=== PATIENT | male | born 1940 | race Asian ===

== ENCOUNTER → 2024-09-19 | Outpatient (CLI) | payer MEDICARE, BC, MEDICAID, SELFPAY ==
[2024-09-19 08:38] LABS: Basophils # (Auto) 0.1 Thou/mm3 (0.0-0.2); Basophils % (Auto) 1 % (0-2.5); Eosinophils # (Auto) 0.3 Thou/mm3 (0.0-0.5); Eosinophils % (Auto) 4 % (0-10); Hematocrit 41.8 % (41.0-53.0); Hemoglobin 13.8 g/dL (13.5-16.0); Immature Granulocytes % (Auto) 0 % (0-0); Immature Granulocytes Auto 0.02 Thou/mm3 (0.00-0.00); Lymphocytes # (Auto) 2.4 Thou/mm3 (1.0-4.8); Lymphocytes % (Auto) 27 % (10-50); Mean Corpuscular Hemoglobin 30.6 pg (25.0-35.0); Mean Corpuscular Volume 93 fL (80-100); Monocytes # (Auto) 0.8 Thou/mm3 (0.0-0.8); Monocytes % (Auto) 9 % (0-12); Neutrophils # (Auto) 5.2 Thou/mm3 (1.8-7.7); Neutrophils % (Auto) 60 % (37-80); Nucleated Red Blood Cell % 0 /100 WBC (0); Platelet Count 314 Thou/mm3 (140-440); RDW Standard Deviation 45.7 fL (35.1-43.9); Red Blood Count 4.51 Miln/mm3 (4.50-5.90); White Blood Count 8.8 Thou/mm3 (3.8-10.6)
[2024-09-19 08:53] LABS: Vitamin D 25 Hydroxy Total 25.4 ng/mL (7.3-40.2)
[2024-09-19 08:55] LABS: Alanine Aminotransferase 20 U/L (10-49); Albumin, Serum 4.5 gm/dL (3.4-4.8); Albumin/Globulin Ratio 1.5 (1.2-2.2); Alkaline Phosphatase 68 U/L (46-116); Anion Gap 10 (7-16); Aspartate Amino Transferase 25 U/L (0-34); BUN/Creatinine Ratio 13 Ratio (12-20); Bilirubin,Total 0.5 mg/dL (0.3-1.2); Blood Urea Nitrogen 17 mg/dL (9-23); Carbon Dioxide 26.9 mMol/L (20.0-31.0); Cardiac Risk Estimate 2.8 RATIO (4.0-6.7); Chloride 106 mMol/L (98-107); Cholesterol 95 mg/dL (132-200); Creatinine (Component) 1.3 mg/dL (0.6-1.3); Free T4 (Free Thyroxine) 1.24 ng/dL (0.89-1.76); Globulin 3.1 gm/dL (2.3-3.5); Glucose 92 mg/dL (74-106); HDL Cholesterol 34 mg/dL (40-60); LDL Cholesterol,Calculated 39 mg/dL (0-130); Osmolality,Calculated 286 (275-295); Potassium 5.4 mMol/L (3.4-5.1); Sodium 143 mMol/L (136-145); Thyroid Stimulating Hormone 2.17 uIU/mL (0.55-4.78); Total Protein 7.6 gm/dL (5.7-8.2); Triglycerides 111 mg/dL (30-150); eGFR 55 See Note
[2024-09-19 10:04] LABS: Glucose Estimated Average 151 mg/dL (80-131); Hemoglobin A1C 6.9 % Hgb (4.8-6.0)
== END | disposition home or self-care (01) ==
PROVIDERS: PCP Internal Medicine; Referring Provider Internal Medicine; Visit Provider Internal Medicine
DX: I11.0 Hypertensive heart disease with heart failure (principal); E11.9 Type 2 diabetes mellitus without complications; E78.2 Mixed hyperlipidemia; E55.9 Vitamin D deficiency, unspecified; E03.9 Hypothyroidism, unspecified
CPT/HCPCS: 36415; 80053; 80061; 82306; 83036; 84439; 84443; 85025

== ENCOUNTER 2025-07-04 14:43 | Inpatient (IN) | payer MEDICARE, MEDICAID, SELFPAY ==
[2025-07-04] VITALS (8 sets, daily range): BP systolic 140–180; BP diastolic 71–108; PULSE 72–113; RESP 16–99; TEMP 36.1–36.8; O2SAT 94–99; BMI 27.4
--- NOTE | 2025-07-04 | XR_ITS ---
Examinations: MRI Brain without intravenous contrast. MRA brain without intravenous contrast. MRA carotids without intravenous contrast 3-D vascular reconstructions Date and time of exam: July 04, 2025, 1835 hours INDICATIONS: Choking after dinner with loss of consciousness, right eye droop, stroke alert today Technique: Multiple axial and sagittal images of the brain have been obtained MRA brain carotid images without contrast obtained, including 3-D postprocessing, vascular maximum intensity projection images Findings: All of the images are severely degraded by patient motion Ventricles are not significantly enlarged No mass effect upon the ventricular system No gross foci of restricted diffusion Very prominent microvascular white matter change with significant atrophy IMPRESSION: Although the images are severely degraded by patient motion No gross hemorrhage mass effect or midline shift No gross acute infarct Chronic multi-infarct dementia pattern
--- NOTE | 2025-07-04 14:44 | EKG_ITS ---
[facility] Test Date: 2025-07-04 Pat Name: JUSTIN SAMPSON Department: Room: - Gender: Male [employer]: : [id number] Requested By: Kelly Toney Order Number: [id number] Reading MD: Kelly Toney Measurements Intervals [place] Rate: 92 P: 63 TX: 210 QRS: -20 QRSD: 80 T: 60 QT: 374 QTc: 465 Interpretive Statements SINUS RHYTHM WITH FIRST DEGREE AV BLOCK No previous ECG available for comparison /[id number]/[email or web address]/[id number].pdf
--- NOTE | 2025-07-04 14:44 | XR_ITS ---
Examination: CTA carotids with intravenous contrast CTA brain, head with intravenous contrast. 2-D sagittal, coronal reconstructions. 3-D reconstructions. Exam date and time: July 04, 2025, 1516 hours INDICATIONS: Stroke alert, onset acute aphasia focal neurologic deficit today CTDI: vol (mGy) 26.1 DLP: (mGycm) 455 Technique: Multiple CTA axial brain, head carotid images post intravenous contrast injection 75 cc, [id number]. 2-D sagittal, coronal reconstructions. 3-D reconstructions, 3-D post processing including vascular maximum intensity projection images. Low dose protocols were performed. One or more of the following dose reduction techniques were used; automated exposure control, adjustment of the mA and/or KV according to patient size, use of iterative reconstruction technique. Findings: No significant common carotid carotid bifurcation or internal carotid artery stenoses on the right Heavy calcification left common carotid bifurcation, 40% stenosis left carotid bifurcation, no critical left internal carotid artery stenosis Dominant right vertebral artery with no critical vertebral artery stenoses in the neck Intracranial vertebral arteries basilar artery posterior cerebral branches fill with no large vessel occlusions Petrous juxtasellar portions internal carotid arteries fill Moderate calcification juxtasellar internal carotid arteries M1 segments middle cerebral arteries middle cerebral artery trifurcation vessels anterior cerebral vessels fill with no large vessel occlusions IMPRESSION: No significant neck arterial stenoses No cerebral large vessel arterial occlusions or thrombus
--- NOTE | 2025-07-04 14:44 | XR_ITS ---
Examination: CT brain head without contrast. 2-D sagittal coronal reconstructions Date and time of exam: July 04, 2025, 1453 hours INDICATIONS: Stroke alert, onset focal neurologic deficit today Technique: Multiple CT axial sections of the brain have been obtained, 5 mm slice thickness. Contrast has not been administered. 2-D sagittal, coronal reconstructions have been obtained Low dose protocols were performed. One or more of the following dose reduction techniques were used; automated exposure control, adjustment of the mA and/or KV according to patient size, use of iterative reconstruction technique. 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 Suspicious for small area of hemorrhage, subarachnoid right frontal parietal sulci image 13 No mass effect or midline shift Basal cisterns are not remarkable. Fourth ventricle is midline. Cranial vault intact. Impression: Suspicious for small areas of hemorrhage, subarachnoid, right frontal parietal sulci Recommend repeat study without patient motion
--- NOTE | 2025-07-04 14:44 | XR_ITS ---
EXAMINATION: AP chest single view TECHNIQUE: AP portable semiupright chest single view Date and time: June, 1539 hours, comparison May 14, 2023 INDICATIONS: Stroke alert today. FINDINGS: Normal size heart No aspiration pneumonia Ectatic thoracic aorta. Severe osteopenia IMPRESSION: No aspiration pneumonia
--- NOTE | 2025-07-04 14:50 | PC.NURSE ---
PT BROUGHT IN BY EMS WITH C/O POSSIBLE STROKE. PER EMS FAMILY STATED THAT PT C/O CHEST PAIN AND SOB THEN WHEN THEY SAT HIM DOWN HE SUDDENLY BECAME NON VERBAL. EMS STATED THAT WHEN HE GOT THERE HE WAS UNABLE TO ANSWER QUESTIONS AND SEEMED TO NOT BE ABLE TO CONTROL R EYE LID. ONCE PT ARRIVED TO ER PT WAS ABLE TO STATE HIS NAME AND DATE OF . DO TO LANGUAGE BARRIER UNABLE TO ASK FURTHER QUESTIONS OR PERFORM NIH. PT WAS NOTED TO MOVE ALL EXTREMITIES EQUALLY AND WITHOUT DIFFICULTY. NO FACIAL DROOP NOTED. EYES PERRL. PT WAS ABLE TO TRACK MY FINGER WITH HIS EYES. PT IN CT AT THIS TIME
--- NOTE | 2025-07-04 14:55 | PC.NURSE ---
UNABLE TO COMPLETE NIH DUE TO LANGUAGE BARRIER. WILL COMPLETE ONCE BACK TO ROOM AND STORM CHASER IS AVAILABLE
--- NOTE | 2025-07-04 15:00 | XR_ITS ---
Examination: CT brain head without contrast. 2-D sagittal coronal reconstructions Date and time of exam: July 04, 2025, 1506 hours INDICATIONS: Stroke alert, onset focal neurologic deficits today, acute aphasia CTDI: vol (mGy): 51.7 DLP: (mGycm): 1020 Technique: Multiple CT axial sections of the brain have been obtained, 5 mm slice thickness. Contrast has not been administered. 2-D sagittal, coronal reconstructions have been obtained Low dose protocols were performed. One or more of the following dose reduction techniques were used; automated exposure control, adjustment of the mA and/or KV according to patient size, use of iterative reconstruction technique. Findings: Mild ventricular enlargement. Encephalomalacia left temporal lobe Intra-axial or extra-axial hemorrhage density is not seen. No mass effect or midline shift Basal cisterns are not remarkable. Fourth ventricle is midline. Cranial vault intact. Impression: Negative for acute hemorrhage, mass effect or midline shift
[2025-07-04] MEDS: LORazepam 2 MG/ML VIAL 1 MG IVP (15:10)
[2025-07-04 15:12] LABS: Basophils # (Auto) 0.1 Thou/mm3 (0.0-0.2); Basophils % (Auto) 1 % (0-2.5); Eosinophils # (Auto) 0.3 Thou/mm3 (0.0-0.5); Eosinophils % (Auto) 3 % (0-10); Hematocrit 41.0 % (41.0-53.0); Hemoglobin 13.2 g/dL (13.5-16.0); Immature Granulocytes Auto 0.02 Thou/mm3 (0.00-0.00); Lymphocytes # (Auto) 3.7 Thou/mm3 (1.0-4.8); Lymphocytes % (Auto) 37 % (10-50); Mean Corpuscular HGB Conc 32.2 g/dl (31.0-37.0); Mean Corpuscular Hemoglobin 30.4 pg (25.0-35.0); Mean Corpuscular Volume 95 fL (80-100); Monocytes # (Auto) 0.7 Thou/mm3 (0.0-0.8); Monocytes % (Auto) 7 % (0-12); Neutrophils # (Auto) 5.2 Thou/mm3 (1.8-7.7); Neutrophils % (Auto) 52 % (37-80); Nucleated Red Blood Cell # 0.00 Thou/mm3 (0.00-0.00); Nucleated Red Blood Cell % 0 /100 WBC (0); Platelet Count 308 Thou/mm3 (140-440); RDW Standard Deviation 46.0 fL (35.1-43.9); Red Blood Count 4.34 Miln/mm3 (4.50-5.90); White Blood Count 10.1 Thou/mm3 (3.8-10.6)
[2025-07-04 15:39] LABS: INR 1.0 (0.9-1.3); Partial Thromboplastin Time 27.4 Seconds (22.0-36.0); Prothrombin Time 10.5 Seconds (9.0-12.2)
--- NOTE | 2025-07-04 15:39 | PC.NURSE ---
SON AT BEDSIDE. TELENUERO BACK ON SCREEN TO SPEAK WITH PT AND SON
[2025-07-04 15:41] LABS: Alanine Aminotransferase 15 U/L (10-49); Albumin, Serum 4.5 gm/dL (3.4-4.8); Albumin/Globulin Ratio 1.3 (1.2-2.2); Alcohol, Blood Medical < 3.0 mg/dL (0-10.0); Alkaline Phosphatase 73 U/L (46-116); Anion Gap 11 (7-16); Aspartate Amino Transferase 19 U/L (0-34); BUN/Creatinine Ratio 10 Ratio (12-20); Bilirubin,Total 0.3 mg/dL (0.3-1.2); Blood Urea Nitrogen 14 mg/dL (9-23); Calcium 9.5 mg/dL (8.3-10.6); Calcium (Corrected) 9.5 mg/dL (8.5-10.1); Carbon Dioxide 24.4 mMol/L (20.0-31.0); Chloride 104 mMol/L (98-107); Creatinine (Component) 1.4 mg/dL (0.6-1.3); Globulin 3.5 gm/dL (2.3-3.5); Glucose 113 mg/dL (74-106); Magnesium 1.6 mg/dL (1.6-2.6); Osmolality,Calculated 279 (275-295); Potassium 4.1 mMol/L (3.4-5.1); Sodium 139 mMol/L (136-145); Total Protein 8.0 gm/dL (5.7-8.2); Troponin I < 0.020 ng/mL (0.0-0.045); eGFR 50 See Note
--- NOTE | 2025-07-04 15:55 | ESCONSULT_ITS ---
Tele Neuro Consultation Consultation Date 07/04/25 Most Recent Vital Signs Last Vital Signs Temp 98.3 F 07/04/25 15:26 Pulse 88 07/04/25 15:40 Resp 18 07/04/25 15:26 BP 150/83 H 07/04/25 15:26 Pulse Ox 99 07/04/25 15:26 O2 Del Method Room Air 07/04/25 15:26 Laboratory-Coagulation Panel PT 10.5 Seconds (9.0-12.2) 07/04/25 14:57 INR 1.0 (0.9-1.3) 07/04/25 14:57 APTT 27.4 Seconds (22.0-36.0) 07/04/25 14:57 Consultation Narrative [facility] Patient Name:???Deangelo Treviño Date of :???1940 Identification Number:??? Date of Service:???07/04/2025 14:45:39 Diagnosis:?R29.818 - Transient neurological symptoms Impression: ?84 y/o M, history of HLD, imaging evidence of prior stroke or other type of insult to left temporal region, prior GI bleeds, now presenting to hospital with abrupt onset of impaired mentation (with not verbalizing or responding), and concern also for impaired control of right eyelid, onset of symptoms witnessed by family at 1:15 PM. By the time of my assessment, he is now responding, answering basic questions (confirmed by his son at bedside), following commands, and no obvious focal deficits. Overall NIHSS 2, for mild lethargy and didn't know month. NCHCT did not show acute abnormalities. Given significant improvement without any obvious severe deficits, and with prior history of GI bleeds (although unknown if any in the past 21 days), thrombolytic was not advised. CTA head/neck without LVO. on my review. ? ?At this point, stroke is on differential, although other considerations could include focal seizure (arising from left temporal region), or other metabolic/infectious/cardiac etiology. Recommend admission for monitoring and further evaluation. Our recommendations are outlined below. Recommendations: ? Stroke/Telemetry Floor ? Neuro Checks (Q4) ? Bedside Swallow Eval ? DVT Prophylaxis ? IV Fluids, Normal Saline ? Euglycemia and Avoid Hyperthermia (PRN Acetaminophen) ?-MRI brain w/o contrast ?-routine EEG ?-cardiac/metabolic/infectious work-up Sign Out: ? Discussed with Emergency Department Provider Advanced Imaging:CTA Head and Neck Completed. LVO:No Patient is not a candidate for PAUL Metrics: Last Known Well: 07/04/2025 13:15:00 Arrival Time: 07/04/2025 14:43:00 Activation Time: 07/04/2025 14:45:39 Initial Response Time: 07/04/2025 14:54:19Symptoms: not responding, ?aphasia. Initial patient interaction: 07/04/2025 14:59:00 NIHSS Assessment Completed: 07/04/2025 15:04:00Patient is not a candidate for Thrombolytic. Thrombolytic Medical Decision: 07/04/2025 15:06:00Patient was not deemed candidate for Thrombolytic because of following reasons: Stroke severity too mild (non-disabling) . CT Head: I personally reviewed all the CT images that were available to me and it showed: no acute intracranial abnormalities Primary Provider Notified of Diagnostic Impression and Management Plan on: 07/04/2025 15:53:40 History of Present Illness:Patient is a 84 year old Male. Patient was brought by EMS for symptoms of not responding, ?aphasia. History is as per ER staff (who received EMS report), also later confirmed by his son at the bedside. Patient unable to provide specific history. Patient was in his USOH up until 1315, at which time he started to complain of chest pain, he sat down, then suddenly became non-verbal, also was apparently having difficulty opening up his right eyelid. EMS was activated, taken to ER for further evaluation. When he initially came to ER, apparently was minimally responsive, only saying his name; was not tracking or following commands. By the time of my assessment, he is much improved, able to answer basic questions, follows commands, tracking to both sides symmetrically. There is a language barrier, he mainly speaks Cam[place]. His son spoke with him, and feels that he is speaking like his usual self at this point. Patient continues to complain of some chest pain. ? Past Medical History: ?Diabetes Mellitus ?Hyperlipidemia ?Stroke Other PMH:? gastritis/duodenitis; prior GI bleeds; Medications: Anticoagulant use:??Unknown Antiplatelet use:?Unknown Reviewed EMR for current medications Allergies:? Reviewed Social History: Drug Use: No Family History: There is no family history of premature cerebrovascular disease pertinent to this consultation ROS : 14 Points Review of Systems was performed and was negative except mentioned in HPI. Past Surgical History: There Is No Surgical History Contributory To Today?s Visit ? Examination: BP(150/91),?Pulse(88), 1A: Level of Consciousness - Arouses to minor stimulation?+ 1 1B: Ask Month and Age - 1 Question Right?+ 1 1C: Blink Eyes & Squeeze Hands - Performs Both Tasks?+ 0 2: Test Horizontal Extraocular Movements - Normal?+ 0 3: Test Visual Diaz - No Visual Loss?+ 0 4: Test Facial Palsy (Use Grimace if Obtunded) - Normal symmetry?+ 0 5A: Test Left Arm Motor Drift - No Drift for 10 Seconds?+ 0 5B: Test Right Arm Motor Drift - No Drift for 10 Seconds?+ 0 6A: Test Left Leg Motor Drift - No Drift for 5 Seconds?+ 0 6B: Test Right Leg Motor Drift - No Drift for 5 Seconds?+ 0 7: Test Limb Ataxia (FNF/Heel-Villa) - No Ataxia?+ 0 8: Test Sensation - Normal; No sensory loss?+ 0 9: Test Language/Aphasia - Normal; No aphasia?+ 0 10: Test Dysarthria - Normal?+ 0 11: Test Extinction/Inattention - No abnormality?+ 0 NIHSS Score:?2 NIHSS Free Text :?mild lethargy, likely from Ativan ? ?couldn't identify month Pre-Morbid Modified [place] Scale: Unable to assess Spoke with :?Dr. Francisco This consult was conducted in real time using interactive audio and video technology. Patient was informed of the technology being used for this visit and agreed to proceed. Patient located in hospital and provider located at home/office setting. Patient is being evaluated for possible acute neurologic impairment and high probability of imminent or life-threatening deterioration. I spent total of 62 minutes providing care to this patient, including time for face to face visit via telemedicine, review of medical records, imaging studies and discussion of findings with providers, the patient and/or family. Dr Odilon Newsome [facility] For Inpatient follow-up with [facility] physician please call [facility] at . As we are not an outpatient service for any post hospital discharge needs please contact the hospital for assistance. If you have any questions for the [facility] physicians or need to reconsult for clinical or diagnostic changes please contact us via [facility] at . Non-radiologist review of imaging performed to assist with emergent clinical decision-making. Remote physician workstations do not possess the same resolution, calibration, or diagnostic capabilities as hospital-based radiology reading stations, and formal radiologist read is necessary. Signature :Fidelina Newsome ?
--- NOTE | 2025-07-04 16:10 | PD.EDNEURO ---
Neuro Symptoms Deficit-RME/HPI General Chief Complaint: Neuro Symptoms/Deficit Stated Complaint: POSSIBLE STROKE Time Seen by Provider: 07/04/25 14:44 Arrival date/time: 07/04/25 14:43 RME / HPI RME / HPI Narrative: 84 year old male presents to the ED BIBA from home following a nonverbal episode today. Per medics, family on scene reported the patient had just eaten and sitting on the couch when he had complained of chest pain and shortly thereafter became non-verbal. unable to respond to families questions. Medics reported the patient was havign difficulty opening his right eye lid, not tracking or following commands. No further history obtainable by patient. Related Data Home Medications ?Medication ?Instructions ?Recorded ?Confirmed acetaminophen 325 mg tablet 650 mg PO Q6H 07/04/25 07/04/25 (Tylenol) atorvastatin 20 mg tablet (Lipitor) 20 mg PO QDAY 07/04/25 07/04/25 losartan 25 mg tablet 25 mg PO QDAY 07/04/25 07/04/25 metformin 500 mg tablet 500 mg PO BID 07/04/25 07/04/25 Allergies Allergy/AdvReac Type Severity Reaction Status Date / Time No Known Allergies Allergy Unverified 05/16/23 16:02 Review of Systems Review of Systems ROS Unobtainable: unobtainable due to mental status Past Medical History Past Medical History NEUROLOGIC: Positive Dementia CARDIAC: Positive Hypercholesterolemia GASTROINTESTINAL: Positive Gastrointestinal Bleed (Colonoscopy) ENDOCRINE: Positive Diabetes Mellitus Type 2 OTHER HISTORY: Positive Blood Transfusions Social History SMOKING STATUS: Never smoker ED Exam Narrative Physical exam: GENERAL APPEARANCE: Patient does not follow commands, had a blank stare, tried to initiate a respond when asked a question HEENT: Normocephalic, atraumatic; pupils equal, round, reactive to light; EOMI; mucous membranes pink, moist; oropharynx clear NECK: Supple LUNGS: CTABL; no wheezes, no rales, no rhonchi HEART: Regular rate, regular rhythm; normal S1, S2; no murmurs ABDOMEN: non distended; normal BS; soft, no tenderness, no guarding, no rebound; no masses, no organomegaly, no hernia EXTREMITIES: atraumatic; no edema NEUROLOGIC: Patient does not follow commands, had a blank stare, tried to initiate a respond when asked a question, not following commands SKIN: warm, dry, normal color; no rashes Course Quality Measures Suspected type of Stroke: Non Acute Last known well (date): 07/04/25 Last known well (time): 13:15 Tenecteplase given: Reason(s) TPA not given: Stroke severity too mild (non-disabling) not given stroke Orders Category Date Time Status Admit to Inpatient Status Routine Admission 07/04/25 16:29 Active Patient Condition Routine Admission 07/04/25 16:29 Ordered Aspiration precautions NOW Care 07/04/25 16:29 Active Bedside Blood Glucose NOW Care 07/04/25 14:44 Active Auth Specialist NOW Care 07/04/25 14:44 Active Continuous Pulse Oximetry NOW Care 07/04/25 14:44 Completed EKG (ED ONLY) *Do not use* NOW Care 07/04/25 14:44 Completed Head of Bed Elevation NOW Care 07/04/25 16:29 Active In and Out Catheter NEEDED Care 07/04/25 14:44 Active Insert IV NOW Care 07/04/25 14:44 Active Miscellaneous Nursing Order NOW Care 07/04/25 16:29 Active Miscellaneous Nursing Order NOW Care 07/04/25 16:29 Active NIH Stroke Scale NOW Care 07/04/25 16:29 Active NIH Stroke Scale now Care 07/04/25 14:44 Active NPO NOW Care 07/04/25 14:44 Active NPO NOW Care 07/04/25 16:29 Active Neuro Check Q4H Care 07/04/25 16:29 Active Notify provider NEEDED Care 07/04/25 16:29 Active Nurse Swallow Screen X1 Care 07/04/25 16:29 Active Nurse Swallow Screen x1 Care 07/04/25 14:44 Active Obtain weight X1 Care 07/04/25 16:29 Active Vital Signs, Non-Routine Q4H Care 07/04/25 16:30 Ordered Vital Signs, Non-Routine Q4H Care 07/04/25 20:30 Ordered Consult to Neurology / Tele-Neurology Routine Cons 07/04/25 14:44 Active Consult to Neurology / Tele-Neurology Routine Cons 07/04/25 16:29 Active PT [Referral Physical Therapy] Routine Cons 07/04/25 16:29 Active Referral Speech Therapy Routine Cons 07/04/25 16:29 Active Diet NPO (NOW) Diet 07/04/25 16:29 Active CA echo doppler complete Stat Exams 07/04/25 16:[address] angio stroke protocol Stat Exams 07/04/25 14:[address] head/brain wo con Stat Exams 07/04/25 15:[address] stroke protocol Stat Exams 07/04/25 14:44 Completed EKG (ED Only) Stat Exams 07/04/25 14:44 Draft MR stroke protocol brain wwo with MRA head and neck Exams 07/04/25 16:29 Ordered Stat XR chest 1V portable Stat Exams 07/04/25 14:44 Completed Alcohol, Blood Medical Stat Lab 07/04/25 14:57 Completed B-Type Natriuretic Peptide Stat Lab 07/04/25 14:57 Completed CBC AM DRAW Lab 07/05/25 05:00 Ordered CBC AM DRAW Lab 07/06/25 05:00 Ordered CBC AM DRAW Lab 07/07/25 05:00 Ordered CBC AM DRAW Lab 07/08/25 05:00 Ordered CBC AM DRAW Lab 07/09/25 05:00 Ordered CBC Stat Lab 07/04/25 14:57 Completed Comprehensive Metabolic Panel AM DRAW Lab 07/05/25 05:00 Ordered Comprehensive Metabolic Panel AM DRAW Lab 07/06/25 05:00 Ordered Comprehensive Metabolic Panel AM DRAW Lab 07/07/25 05:00 Ordered Comprehensive Metabolic Panel AM DRAW Lab 07/08/25 05:00 Ordered Comprehensive Metabolic Panel AM DRAW Lab 07/09/25 05:00 Ordered Comprehensive Metabolic Panel Stat Lab 07/04/25 14:57 Completed Drug Screen,Urine Stat Lab 07/04/25 16:40 Completed Glycohemoglobin w (eAG) AM DRAW Lab 07/05/25 05:00 Ordered Lipid Panel AM DRAW Lab 07/05/25 05:00 Ordered Magnesium AM DRAW Lab 07/05/25 05:00 Ordered Magnesium AM DRAW Lab 07/06/25 05:00 Ordered Magnesium AM DRAW Lab 07/07/25 05:00 Ordered Magnesium AM DRAW Lab 07/08/25 05:00 Ordered Magnesium AM DRAW Lab 07/09/25 05:00 Ordered Magnesium Stat Lab 07/04/25 14:57 Completed Partial Thromboplastin Time Stat Lab 07/04/25 14:57 Completed Phosphorous AM DRAW Lab 07/05/25 05:00 Ordered Phosphorous AM DRAW Lab 07/06/25 05:00 Ordered Phosphorous AM DRAW Lab 07/07/25 05:00 Ordered Phosphorous AM DRAW Lab 07/08/25 05:00 Ordered Phosphorous AM DRAW Lab 07/09/25 05:00 Ordered Prothrombin Time with INR AM DRAW Lab 07/05/25 05:00 Ordered Prothrombin Time with INR Stat Lab 07/04/25 14:57 Completed Thyroid Stimulating Hormone AM DRAW Lab 07/05/25 05:00 Ordered Troponin I Routine Lab 07/04/25 16:43 Completed Troponin I Stat Lab 07/04/25 14:57 Completed Urinalysis, C/S if Indicated Stat Lab 07/04/25 16:39 Completed Acetaminophen Tab [Tylenol Tab] Med 07/04/25 16:29 Active 650 mg PO Q6H PRN Heparin Inj Med 07/04/25 21:00 Active 5,000 unit SC Q12HR LORazepam [Ativan Inj] Med 07/04/25 14:53 Discontinued 1 mg IVP X1 ONE Ondansetron Inj [Zofran Inj] Med 07/04/25 16:29 Active 4 mg IVP Q6H PRN Pantoprazole [Protonix] Med 07/05/25 09:00 Active 40 mg PO QDAY Senna [Senokot] Med 07/05/25 09:00 Active 1 tab PO QDAY oxyCODONE/APAP 5/325 [Percocet 5/325] Med 07/04/25 16:29 Active 1 tab PO Q6H PRN Code Status Routine Oth 07/04/25 16:29 Ordered Oxygen Delivery DAILY RT 07/04/25 16:29 Active Oxygen Delivery NOW RT 07/04/25 14:44 Active Vital Signs Vital signs: Vital Signs Temperature 98.3 F 07/04/25 15:26 Pulse Rate 91 07/04/25 15:26 Respiratory Rate 18 07/04/25 15:26 Blood Pressure 150/83 H 07/04/25 15:26 Pulse Oximetry (%) 99 07/04/25 15:26 Oxygen Delivery Method Room Air 07/04/25 15:26 Pulse ox is 99% on room air which is adequate. Neuro Symptoms / Deficit MDM Narrative MDM Narrative:: IMelanie, am scribing for and in the presence of Dr. Francisco. 1553: I spoke with teleneurologist Dr. Newsome. States patient is not a TNK candidate. 1604: I spoke with hospitalist team A for admission. Discussed patients PMHx, HPI, ED course, exam findings, labs, and radiology results. The hospitalist agree to accept the patient for admission. Patient data External records reviewed:: [facility] previous records and EMS form Clinical information provided by:: EMS Social determinants that could affect healthcare access:: none Patient has the following chronic illnesses:: HLD, prior GI bleeds How is presenting disease/condition affected by chronic disease/condition?: uneffected by Evaluation data The following diagnostics were reviewed and interpreted by me:: lab results, radiology exam(s) and EKG tracing(s) (EKG @ 15:34, normal sinus rhythm with first degree AV block, rate 92, Q-wave in lead III. ) Lab and/or radiology exams considered but not ordered:: None Interpretation Summary: Ordering Physician: Kelly Francisco MD Date of Service: 07/04/25 Procedure(s): XR chest 1V portable Accession Number(s): [id number] cc: Brett Carias MD; NO PRIMARY/FAMILY,PHYSICIAN; Kelly Francisco MD~ EXAMINATION: AP chest single view TECHNIQUE: AP portable semiupright chest single view Date and time: June, 1539 hours, comparison May 14, 2023 INDICATIONS: Stroke alert today. FINDINGS: Normal size heart No aspiration pneumonia Ectatic thoracic aorta. Severe osteopenia IMPRESSION: No aspiration pneumonia Dictated By: Brett Carias MD Signed By: <Electronically signed by Brett Carias MD in OV> 07/04/25 1554 Ordering Physician: Kelly Francisco MD Date of Service: 07/04/25 Procedure(s): CT stroke protocol Accession Number(s): [id number] cc: Brett Carias MD; Kelly Francisco MD~ Examination: CT brain head without contrast. 2-D sagittal coronal reconstructions Date and time of exam: July 04, 2025, 1453 hours INDICATIONS: Stroke alert, onset focal neurologic deficit today Technique: Multiple CT axial sections of the brain have been obtained, 5 mm slice thickness. Contrast has not been administered. 2-D sagittal, coronal reconstructions have been obtained Low dose protocols were performed. One or more of the following dose reduction techniques were used; automated exposure control, adjustment of the mA and/or KV according to patient size, use of iterative reconstruction technique. 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 Suspicious for small area of hemorrhage, subarachnoid right frontal parietal sulci image 13 No mass effect or midline shift Basal cisterns are not remarkable. Fourth ventricle is midline. Cranial vault intact. Impression: Suspicious for small areas of hemorrhage, subarachnoid, right frontal parietal sulci Recommend repeat study without patient motion Dictated By: Brett Carias MD Signed By: <Electronically signed by Brett Carias MD in OV> 07/04/25 1455 Ordering Physician: Kelly Francisco MD Date of Service: 07/04/25 Procedure(s): CT angio stroke protocol Accession Number(s): [id number] cc: Brett Carias MD; Kelly Francisco MD~ Examination: CTA carotids with intravenous contrast CTA brain, head with intravenous contrast. 2-D sagittal, coronal reconstructions. 3-D reconstructions. Exam date and time: July 04, 2025, 1516 hours INDICATIONS: Stroke alert, onset acute aphasia focal neurologic deficit today CTDI: vol (mGy) 26.1 DLP: (mGycm) 455 Technique: Multiple CTA axial brain, head carotid images post intravenous contrast injection 75 cc, [id number]. 2-D sagittal, coronal reconstructions. 3-D reconstructions, 3-D post processing including vascular maximum intensity projection images. Low dose protocols were performed. One or more of the following dose reduction techniques were used; automated exposure control, adjustment of the mA and/or KV according to patient size, use of iterative reconstruction technique. Findings: No significant common carotid carotid bifurcation or internal carotid artery stenoses on the right Heavy calcification left common carotid bifurcation, 40% stenosis left carotid bifurcation, no critical left internal carotid artery stenosis Dominant right vertebral artery with no critical vertebral artery stenoses in the neck Intracranial vertebral arteries basilar artery posterior cerebral branches fill with no large vessel occlusions Petrous juxtasellar portions internal carotid arteries fill Moderate calcification juxtasellar internal carotid arteries M1 segments middle cerebral arteries middle cerebral artery trifurcation vessels anterior cerebral vessels fill with no large vessel occlusions IMPRESSION: No significant neck arterial stenoses No cerebral large vessel arterial occlusions or thrombus Dictated By: Brett Carias MD Signed By: <Electronically signed by Brett Carias MD in OV> 07/04/25 1550 Ordering Physician: Kelly Francisco MD Date of Service: 07/04/25 Procedure(s): CT head/brain wo con Accession Number(s): [id number] cc: Brett Carias MD; Kelly Francisco MD~ Examination: CT brain head without contrast. 2-D sagittal coronal reconstructions Date and time of exam: July 04, 2025, 1506 hours INDICATIONS: Stroke alert, onset focal neurologic deficits today, acute aphasia CTDI: vol (mGy): 51.7 DLP: (mGycm): 1020 Technique: Multiple CT axial sections of the brain have been obtained, 5 mm slice thickness. Contrast has not been administered. 2-D sagittal, coronal reconstructions have been obtained Low dose protocols were performed. One or more of the following dose reduction techniques were used; automated exposure control, adjustment of the mA and/or KV according to patient size, use of iterative reconstruction technique. Findings: Mild ventricular enlargement. Encephalomalacia left temporal lobe Intra-axial or extra-axial hemorrhage density is not seen. No mass effect or midline shift Basal cisterns are not remarkable. Fourth ventricle is midline. Cranial vault intact. Impression: Negative for acute hemorrhage, mass effect or midline shift Dictated By: Brett Carias MD Signed By: <Electronically signed by Brett Carias MD in OV> 07/04/25 1522 Medications / Prescriptions Medications or Prescriptions considered but not ordered:: None Medication administrations:: Medication Administration History Acetaminophen (Acetaminophen 325 Mg Tablet) 650 mg PO Q6H PRN PRN Reason: Fever >100.4 or pain 1-5 Stop: 08/03/25 16:28 Dextrose (Dextrose 50%-Water Inj 50 Ml Syringe) 25 ml IV Q15MIN PRN PRN Reason: BG 50-70 responsive npo pt Stop: 08/03/25 16:50 Dextrose (Dextrose 50%-Water Inj 50 Ml Syringe) 50 ml IV Q15MIN PRN PRN Reason: BG <50 OR BG <70 & pt unresponsive Stop: 08/03/25 16:50 Glucagon (Glucagon Inj 1 Mg Vial) 1 mg IM Q15MIN PRN PRN Reason: BG <70, and no IV access Heparin Sodium (Porcine) (Heparin Sod Inj 5000 Unit/Ml Vial) 5,000 unit SC Q12HR [place] Stop: 07/18/25 20:59 Ceftriaxone Sodium/Dextrose (Rocephin/D5w 1gm Iv Premix) 1 gm in 50 mls @ 100 mls/hr IV QPM [place] Stop: 07/11/25 16:59 Insulin Human Lispro (Insulin Lispro (Admelog) 1 Unit/0.01 Ml Unit) 0 unit SC Q6HR [place]; Protocol Stop: 08/03/25 17:59 Ondansetron HCl (Ondansetron Inj 2 Mg/Ml Inj 2 Ml) 4 mg IVP Q6H PRN; Protocol PRN Reason: NAUSEA OR VOMITING Stop: 08/03/25 16:28 Oxycodone/Acetaminophen (Oxycodone/Apap 5/325 Tablet) 1 tab PO Q6H PRN PRN Reason: Pain Scale 6-10 Stop: 07/09/25 16:28 Pantoprazole Sodium (Pantoprazole 40 Mg Tablet) 40 mg PO QDAY [place] Stop: 08/04/25 08:59 Sennosides (Senna Tablet) 1 tab PO QDAY [place]; Protocol Stop: 08/04/25 08:59 Discontinued Medications Lorazepam (Lorazepam 2 Mg/Ml Vial) 1 mg IVP X1 ONE Stop: 07/04/25 14:54 Last Admin: 07/04/25 15:10 Dose: 1 mg Documented By: [facility] Comments: GIVEN FOR STROKE PT IN CT AND NO SCANNER AVAILABLE See above Consultations Consultation(s) initiated? (list below): Yes Consultation #1 (Physician, Specialty, Details): See above Diagnosis Neuro Differential Diagnosis: subarachnoid hemorrhage, cerebrovascular accident and transient cerebral ischemia Most likely diagnosis given after review of the tests above:: Acute aphasia Admission Indicated Admission indicated?: indicated Admission Request Was there a request for admission?: Yes Admission Attestation Admission request attestation: Discussed case with [] from Hospitalist service regarding admission. Discussed patients ED course, exam findings, labs, and radiology results. The Hospitalist [agrees,declines] to accept the patient for admission. Disposition Plan Disposition Plan: Admit Discharge Plan Plan Patient Disposition: Admit Acute Care w/in Hospital Problem List Clinical Impression: Aphasia
[2025-07-04 16:28] LABS: B-Type Natriuretic Peptide 53 pg/mL (0-100)
--- NOTE | 2025-07-04 16:29 | ECHO_ITS ---
Patient Info Name: Deangelo Treviño Age: 84 years : 1940 Gender: Male Ht: 160 cm Wt: 76 kg BSA: 1.87 m2 BP: 140 / 85 mmHg HR: 86 bpm Exam Date: 07/04/2025 5:33 PM Admit Date: 07/04/2025 Site: [facility] Room Number: ER Patient Status: I Exam Type: CA echo doppler complete Morning Show Producer: Audrey Almeida Ordering Physician: Maikel Georges Study Info Indications Stroke - Primary Location: [place] Left Ventricular Outflow Tract Name Value Normal LVOT 2D LVOT Diameter 2.0 cm LVOT Doppler LVOT Peak Velocity 93 cm/s LVOT Mean Gradient 2 mmHg LVOT VTI 21 cm LVOT VTI/AV VTI Ratio 0.9 LVOT Stroke Volume 65 ml Pulmonic Valve Name Value Normal PV Doppler PV Peak Velocity 72 cm/s PV Regurgitation Doppler UT Peak End Diastolic Velocity 87 cm/s Mitral Valve Name Value Normal MV Doppler MV Decel [place] 670 cm/s2 MV PHT 15 ms MV Area (PHT) 14.3 cm2 4.0-5.0 MV Diastolic Function MV E Peak Velocity 35 cm/s MV A Peak Velocity 96 cm/s MV E/A 0.4 MV Annular TDI MV Septal e' Velocity 5.2 cm/s MV E/e' (Septal) 6.8 MV Lateral e' Velocity 4.9 cm/s MV E/e' (Lateral) 7.2 MV e' Average 5.06 cm/s MV E/e' (Average) 7.0 Tricuspid Valve Name Value Normal TV Regurgitation Doppler TR Peak Velocity 201 cm/s Estimated PAP/RSVP RA Pressure 8 mmHg <=5 PA Systolic Pressure 24 mmHg <36 RV Systolic Pressure 24 mmHg <36 TV Annular TDI TV Lateral Edwige s' Velocity 18.3 cm/s >=9.5 Aortic Valve Name Value Normal AV 2D/MM AV Cusp Sep (MM) 1.4 cm AV Doppler AV Peak Velocity 107 cm/s AV Mean Gradient 3 mmHg AV VTI 23 cm AV Area (Cont Eq VTI) 2.9 cm2 >=3.0 AV Area (Cont Eq Clifford) 2.7 cm2 AV DI (Clifford) 0.87 AV Regurgitation 2D LVOT Area 3.1 cm2 AV Regurgitation Doppler AR Decel [place] 383 cm/s2 AR PHT 343 ms Ventricles Name Value Normal LV Dimensions 2D/MM IVS Diastolic Thickness (2D) 1.3 cm 0.6-1.0 LVID Diastole (2D) 4.5 cm 4.2-5.8 LVIW Diastolic Thickness (2D) 0.9 cm 0.6-1.0 LVID Systole (2D) 3.2 cm 2.5-4.0 LVOT Diameter 2.0 cm LV Mass (2D Cubed) 175.02 g 88.00-224.00 LV Mass Index (2D Cubed) 94 g/m2 49-115 Relative Wall Thickness (2D) 0.40 <=0.42 IVS/LVIW Diastolic Thickness (2D) 1.44 0.00-1.50 LV Fractional Shortening/Ejection Fraction 2D/MM LV Fractional Shortening (2D) 29 % 25-43 LV EF (2D Teichholz) 56 % RV Dimensions 2D/MM TV Lateral Edwige s' Velocity 18.3 cm/s >=9.5 Atria Name Value Normal LA Dimensions LA Volume (4C A-L) 28 ml LA Volume (BP A-L) 29 ml Left Ventricle Left ventricular chamber dimension is normal. Left ventricular systolic function is normal with visually estimated ejection fraction of 55-60%. There is mild concentric hypertrophy noted in the left ventricle. Left ventricular segmental wall motion is normal. There is grade I diastolic dysfunction in the left ventricle. Right Ventricle Right ventricular chamber dimension is normal. Right ventricular systolic function is normal. Left Atrium Left atrial chamber dimension is normal. Right Atrium Right atrial chamber dimension is normal. Aortic Valve The aortic valve is trileaflet. There is mild aortic valve sclerosis. There is no aortic valve stenosis with a peak velocity of 107 cm/s, mean gradient of 3 mmHg, and aortic valve area of 2.9 cm2. There is moderate aortic valve regurgitation. Pulmonic Valve The pulmonic valve is normal. There is no pulmonic valve stenosis. There is trace pulmonic regurgitation. Mitral Valve The mitral valve has normal leaflets. There is no mitral valve stenosis. There is no mitral valve regurgitation. Tricuspid Valve The tricuspid valve leaflets are normal. There is no tricuspid valve stenosis. There is trace tricuspid valve regurgitation. No pulmonary hypertension, estimated pulmonary arterial systolic pressure is 24 mmHg and systemic blood pressure of 140 mmHg in systole. Pericardium/Pleural The pericardium appears normal. There is no pericardial effusion. No pleural effusion visualized. Inferior Vena Cava Not well visualized inferior vena cava with >50% collapse upon inspiration consistent with normal right atrial pressure, 8 mmHg. Aorta The aortic measurements are indexed to age and body surface area. The aortic root at the sinus of Valsalva is not well visualized. The prox ascending aorta is not well visualized. Summary 1. Left ventricle size is normal and systolic function is normal. Estimated ejection fraction is 55-60%. There is grade I diastolic dysfunction. There is mild concentric hypertrophy noted. 2. Right ventricle chamber size is normal and systolic function is normal. Estimated RVSP is 24 mmHg. 3. There is mild aortic valve sclerosis without stenosis. Mild to moderate AI. Trace PI and MR. Mild MAC. 4. The left atrium is normal. The right atrium is normal. IVC not well-visualized. 5. Bubble study not performed as patient uncooperative and moving during the exam. Report Signatures Finalized by Wagner Ortiz on 07/04/2025 07:16 PM
[2025-07-04 16:52] LABS: Collection Type, Urine Clean Catch; Squamous Epithelial Cell,Urine 0 /hpf (0-5)
[2025-07-04 16:56] LABS: Bilirubin,Urine Negative (Negative); Blood,Urine Negative (Negative); Clarity,Urine Clear (Clear/Hazy); Color,Urine Lt-Yellow (Lt Yel-Yel); Culture Indicated,Urine Not Indicated; Glucose, Urine Negative (Negative); Ketones,Urine Negative (Negative); Leukocyte Esterase,Urine Negative (Negative); Nitrite,Urine Negative (Negative); PH,Urine 6.0 (5.0-7.0); Protein,Urine 2+ (Neg - Trace); RBC,Urine 3 /hpf (0-3); Specific Gravity,Urine 1.038 (1.001-1.035); Urobilinogen,Urine Negative mg/dL (0.0-1.0); WBC,Urine 2 /hpf (0-5)
[2025-07-04 17:04] LABS: Amphetamine/Methamp Scrn,U Negative (Negative); Barbiturate Screen,Urine Negative (Negative); Benzodiazepines Screen,Urine Negative (Negative); Benzoylecgonine Screen, Ur Negative (Negative); Fentanyl Screen,Urine Negative (Negative); Opiate Screen,Urine Negative (Negative); THC Screen,Urine Negative (Negative)
[2025-07-04 17:13] LABS: Troponin I < 0.020 ng/mL (0.0-0.045)
--- NOTE | 2025-07-04 17:18 | PD.RESPRO ---
Documentation for date of: 07/04/25 Exam Vital Signs Temp Pulse Resp BP Pulse Ox O2 Del Method 97.9 F 113 H 18 140/85 H 99 Room Air 07/04/25 16:28 07/04/25 16:28 07/04/25 16:28 07/04/25 16:28 07/04/25 16:28 07/04/25 16:28 Objective Labs 07/04/25 14:57 07/04/25 14:57 Labs: Laboratory Results - last 24 hr 07/04/25 07/04/25 07/04/25 14:57 16:39 16:40 WBC 10.1 RBC 4.34 L Hgb 13.2 L Hct 41.0 MCV 95 MCH 30.4 MCHC 32.2 RDW Std Deviation 46.0 H Plt Count 308 Neut % (Auto) 52 Lymph % (Auto) 37 Whitley % (Auto) 7 Eos % (Auto) 3 Baso % (Auto) 1 Neut # (Auto) 5.2 Lymph # (Auto) 3.7 Whitley # (Auto) 0.7 Eos # (Auto) 0.3 Baso # (Auto) 0.1 Immature Gran # (Auto) 0.02 H Absolute Nucleated RBC 0.00 Immature Gran % 0 Nucleated RBC % 0 PT 10.5 INR 1.0 APTT 27.4 Sodium 139 Potassium 4.1 Chloride 104 Carbon Dioxide 24.4 Anion Gap 11 BUN 14 Creatinine 1.4 H Estim Creat Clear Calc Not Performed. eGFR 50 L BUN/Creatinine Ratio 10 L Glucose 113 H Calculated Osmolality 279 Calcium 9.5 Corrected Calcium 9.5 Magnesium 1.6 Total Bilirubin 0.3 AST 19 ALT 15 Alkaline Phosphatase 73 Troponin I < 0.020 B-Natriuretic Peptide 53 Total Protein 8.0 Albumin 4.5 Globulin 3.5 Albumin/Globulin Ratio 1.3 Ur Collection Type Clean Catch Urine Color Lt-Yellow Urine Clarity Clear Urine pH 6.0 Ur Specific [place] 1.038 H Urine Protein 2+ A Urine Glucose (UA) Negative Urine Ketones Negative Urine Blood Negative Urine Nitrite Negative Urine Bilirubin Negative Urine Urobilinogen (Auto) Negative Ur Leukocyte Esterase Negative Urine RBC 3 Urine WBC 2 Ur Squamous Epith Cells 0 Urine Bacteria None Ur Culture Indicated? Not Indicated Urine Opiates Screen Negative Urine Fentanyl Screen Negative Ur Barbiturates Screen Negative U Amphetamin/Meth Scrn Negative U Benzodiazepines Scrn Negative U Cocaine Metab Screen Negative U Marijuana (THC) Screen Negative Ethyl Alcohol < 3.0 07/04/25 16:43 WBC RBC Hgb Hct MCV MCH MCHC RDW Std Deviation Plt Count Neut % (Auto) Lymph % (Auto) Whitley % (Auto) Eos % (Auto) Baso % (Auto) Neut # (Auto) Lymph # (Auto) Whitley # (Auto) Eos # (Auto) Baso # (Auto) Immature Gran # (Auto) Absolute Nucleated RBC Immature Gran % Nucleated RBC % PT INR APTT Sodium Potassium Chloride Carbon Dioxide Anion Gap BUN Creatinine Estim Creat Clear Calc eGFR BUN/Creatinine Ratio Glucose Calculated Osmolality Calcium Corrected Calcium Magnesium Total Bilirubin AST ALT Alkaline Phosphatase Troponin I < 0.020 B-Natriuretic Peptide Total Protein Albumin Globulin Albumin/Globulin Ratio Ur Collection Type Urine Color Urine Clarity Urine pH Ur Specific [place] Urine Protein Urine Glucose (UA) Urine Ketones Urine Blood Urine Nitrite Urine Bilirubin Urine Urobilinogen (Auto) Ur Leukocyte Esterase Urine RBC Urine WBC Ur Squamous Epith Cells Urine Bacteria Ur Culture Indicated? Urine Opiates Screen Urine Fentanyl Screen Ur Barbiturates Screen U Amphetamin/Meth Scrn U Benzodiazepines Scrn U Cocaine Metab Screen U Marijuana (THC) Screen Ethyl Alcohol Quality Measures Quality Measures VTE prophylaxis Advance care planning discussed with:: other Assessment & Plan Assessment Current Active Medications: Generic Name Dose Route Start Last Admin Trade Name Freq PRN Reason Stop Dose Admin Acetaminophen 650 mg 07/04/25 16:29 Acetaminophen 325 Mg Tablet PO 08/03/25 16:28 Q6H PRN Fever >100.4 or pain 1-5 Dextrose 25 ml 07/04/25 16:51 Dextrose 50%-Water Inj 50 Ml Syringe IV 08/03/25 16:50 Q15MIN PRN BG 50-70 responsive npo pt Dextrose 50 ml 07/04/25 16:51 Dextrose 50%-Water Inj 50 Ml Syringe IV 08/03/25 16:50 Q15MIN PRN BG <50 OR BG <70 & pt unresponsive Glucagon 1 mg 07/04/25 16:51 Glucagon Inj 1 Mg Vial IM Q15MIN PRN BG <70, and no IV access Heparin Sodium (Porcine) 5,000 unit 07/04/25 21:00 Heparin Sod Inj 5000 Unit/Ml Vial SC 07/18/25 20:59 Q12HR [place] Ceftriaxone Sodium/Dextrose 1 gm in 50 mls @ 100 mls/hr 07/04/25 17:00 Rocephin/D5w 1gm Iv Premix IV 07/11/25 16:59 QPM [place] Insulin Human Lispro 0 unit 07/04/25 18:00 Insulin Lispro (Admelog) 1 Unit/0.01 Ml Unit SC 08/03/25 17:59 Q6HR [facility] Protocol Ondansetron HCl 4 mg 07/04/25 16:29 Ondansetron Inj 2 Mg/Ml Inj 2 Ml IVP 08/03/25 16:28 Q6H PRN NAUSEA OR VOMITING Protocol Oxycodone/Acetaminophen 1 tab 07/04/25 16:29 Oxycodone/Apap 5/325 Tablet PO 07/09/25 16:28 Q6H PRN Pain Scale 6-10 Pantoprazole Sodium 40 mg 07/05/25 09:00 Pantoprazole 40 Mg Tablet PO 08/04/25 08:59 QDAY [facility] Sennosides 1 tab 07/05/25 09:00 Senna Tablet PO 08/04/25 08:59 QDAY [facility] Protocol
--- NOTE | 2025-07-04 17:49 | ESHP_ITS ---
<Statement entered by Quan Valentin MD - 07/13/25 09:13> I reviewed above note and agree with findings and plans. I have also personally examined the patient with medicine team and went over assessment and plan with medical team including analysis internship and resident physician. <Statement entered by Georges Alfred MD - 07/04/25 17:50> In summary: 82-year-old male with PMHx of T2DM presenting after an episode of choking during dinner, and brief loss of consciousness and dysphagia as noted by his . There there was also right eye droop noted on exam in the ED which have since resolved. We attempted to reach out to the son who is a personal contract but were unsuccessful. Teleneuro recommended admission for stroke and seizure workup. He has a history of GI bleed, and symptoms appear to have resolved since admission, thus TPN is contraindicated and was not offered. 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 CT is also negative. Will admit for MRI and complete stroke workup and seizure workup. Pending further recommendation from in-house neurology. I?ve reviewed the note and agree with this assessment and plan, with the exceptions outlined above. I personally went over the labs, imaging, home medications, and prior records, and examined the patient. The case was also reviewed with the attending physician. Please note: this document was transcribed using voice recognition technology; minor inaccuracies may be present. 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 Patient was in his usual state of health until 1:15 PM, at which point patient became non- verbal and had difficulty with opening his right eyelid. Family called EMS and the patient was brought to the ED for further evaluation. Per ED note, patient was minimally responsive, only able to say his name, and not tracking or following commands on arrival. By the time the IM team came to assess the patient, he was able to follow commands and able to used the bedside urinal. Tried to get in touch with patient's son to obtain more information as patient is a poor historian however he did not answer. Teleneuro was consulted and patient's NIHSS was 2. Given his significant improvement, lack of obvious severe deficits, and a history of GI bleeds, teleneuro did not recommend thrombolytics. ED Course: -Initial vitals were: BP 150/83, HR 91, RR 18, 98.3F, O2 sat 99% on room air. -Labs significant for: hemoglobin 13.2, Cr 1.4, eGFR 50, glucose 113. -Imaging included: CXR: no apsiration pneumonia. Head CT: negative for acute hemorrhage, mass effect or midline shift, mild ventricular enlargement, encephalomalacia left temporal lobe. CTA head/neck: no significant neck arterial stenoses, no cerebral large vessel arterial occlusions or thrombus. -In the ED, patient was given: Lorazepam 1mg x1. Past Medical History: as above Social History: - Smoking: smoker - Alcohol: none - Illicit drugs: none Current Medications: pending med recs. Allergies: No known drug allergies. Review of Systems Review of Systems Narrative Review of Systems: ROS unobtainable. Patient is a poor historian. Exam Vital Signs Temp Pulse Resp BP Pulse Ox O2 Del Method 97.9 F 113 H 18 140/85 H 99 Room Air 07/04/25 16:28 07/04/25 16:28 07/04/25 16:28 07/04/25 16:28 07/04/25 16:28 07/04/25 16:28 Narrative Exam Physical Exam General: Awake and in no acute distress. Non-toxic appearing. HEENT: Normocephalic, atraumatic, extraocular movements intact, pupils equal and reactive to light. Heart: Regular rate and rhythm, no murmurs, rubs or gallops. Lungs: Clear to auscultation with no wheezing or crackles bilaterally. Non- labored respirations, symmetric chest rise, no use of accessory muscles. Abdomen: Soft, nondistended, nontender. No guarding or rebound tenderness. Neurologic: No obvious gross neurological deficit, and patient able to move all 4 extremities. Extremities: No edema, clubbing or cyanosis. Skin: Warm and dry without rashes. Psychiatric: Cooperative, appropriate mood and affect Results: Labs 07/05/25 05:32 07/05/25 05:32 Labs: Short CBC 07/04/25 Range/Units 14:57 WBC 10.1 (3.8-10.6) Thou/mm3 Hgb 13.2 L (13.5-16.0) g/dL Hct 41.0 (41.0-53.0) % Plt Count 308 (140-440) Thou/mm3 BMP 07/04/25 14:57 Sodium 139 Potassium 4.1 Chloride 104 Carbon Dioxide 24.4 BUN 14 Creatinine 1.4 H Glucose 113 H Calcium 9.5 Cardiac Enzymes 07/04/25 07/04/25 Range/Units 14:57 16:43 Troponin I < 0.020 < 0.020 (0.0-0.045) ng/mL Liver Function 07/04/25 Range/Units 14:57 Total Bilirubin 0.3 (0.3-1.2) mg/dL AST 19 (0-34) U/L ALT 15 (10-49) U/L Alkaline Phosphatase 73 (46-116) U/L Albumin 4.5 (3.4-4.8) gm/dL Urine 07/04/25 Range/Units 16:39 Urine Color Lt-Yellow (Lt Yel-Yel) Urine Clarity Clear (Clear/Hazy) Urine pH 6.0 (5.0-7.0) Ur Specific [place] 1.038 H (1.001-1.035) Urine Protein 2+ A (Neg - Trace) Urine Glucose (UA) Negative (Negative) Quality Measures Quality Measures VTE prophylaxis Advance care planning discussed with:: other Medications Home Medications and Allergies Home Medications ?Medication ?Instructions ?Recorded ?Confirmed ?Type acetaminophen 325 mg tablet 650 mg PO Q6H 07/04/25 History (Tylenol) atorvastatin 20 mg tablet (Lipitor) 20 mg PO QDAY 06/1907/04/25 History losartan 25 mg tablet 25 mg PO QDAY 07/04/2507/04 History metformin 500 mg tablet 500 mg PO BID 07/04/2507/04 History Allergies Allergy/AdvReac Type Severity Reaction Status Date / Time No Known Allergies Allergy Unverified 05/16/23 16:02 Visit Medications Acetaminophen (Acetaminophen 325 Mg Tablet) 650 mg PO Q6H PRN PRN Reason: Fever >100.4 or pain 1-5 Stop: 08/03/25 16:28 Dextrose (Dextrose 50%-Water Inj 50 Ml Syringe) 25 ml IV Q15MIN PRN PRN Reason: BG 50-70 responsive npo pt Stop: 08/03/25 16:50 Dextrose (Dextrose 50%-Water Inj 50 Ml Syringe) 50 ml IV Q15MIN PRN PRN Reason: BG <50 OR BG <70 & pt unresponsive Stop: 08/03/25 16:50 Glucagon (Glucagon Inj 1 Mg Vial) 1 mg IM Q15MIN PRN PRN Reason: BG <70, and no IV access Heparin Sodium (Porcine) (Heparin Sod Inj 5000 Unit/Ml Vial) 5,000 unit SC Q12HR [place] Stop: 07/18/25 20:59 Ceftriaxone Sodium/Dextrose (Rocephin/D5w 1gm Iv Premix) 1 gm in 50 mls @ 100 mls/hr IV QPM [place] Stop: 07/11/25 16:59 Insulin Human Lispro (Insulin Lispro (Admelog) 1 Unit/0.01 Ml Unit) 0 unit SC Q6HR [place]; Protocol Stop: 08/03/25 17:59 Ondansetron HCl (Ondansetron Inj 2 Mg/Ml Inj 2 Ml) 4 mg IVP Q6H PRN; Protocol PRN Reason: NAUSEA OR VOMITING Stop: 08/03/25 16:28 Oxycodone/Acetaminophen (Oxycodone/Apap 5/325 Tablet) 1 tab PO Q6H PRN PRN Reason: Pain Scale 6-10 Stop: 07/09/25 16:28 Pantoprazole Sodium (Pantoprazole 40 Mg Tablet) 40 mg PO QDAY [place] Stop: 08/04/25 08:59 Sennosides (Senna Tablet) 1 tab PO QDAY [place]; Protocol Stop: 08/04/25 08:59 Discontinued Medications Lorazepam (Lorazepam 2 Mg/Ml Vial) 1 mg IVP X1 ONE Stop: 07/04/25 14:54 Last Admin: 07/04/25 15:10 Dose: 1 mg Assessment & Plan Plan 84-year-old male with a history of hyperlipidemia, prior stroke or left temporal insult (evidenced on imaging), previous GI bleeds, and non-insulin dependent diabetes presented with aphasia and transient right eyelid weakness, admitted for stroke versus seizure workup. #Right eyelid weakness #Acute encephalopathy, postictal state DDX: CVA vs TIA. History stroke/TIA: positive. Smoking history: positive. Initial symptoms: Acute aphasia with transient right eyelid weakness. Initial NIHSS 2. Initial BP: 150/83. Initial glucose: 113. Hemoglobin A1c: pending. Lipids: pendings. TSH and free T4: pending. 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 Negative for acute hemorrhage, mass effect or midline shift. CTA head/neck: No significant neck arterial stenoses. No cerebral large vessel arterial occlusions or thrombus. MRI/MRA: pending. TTE: pending. Candidate for IV thrombolysis? No Plan: * Neurology consulted - appreciate recs. * Maintain euglycemia and normal temperature (PRN Acetaminophen). * Neuro checks Q4H. * Aspiration precautions. * Swallow evaluation. * Speech evaluation. * PT evaluation. * Bedside Swallow Eval. * DVT Prophylaxis with heparin. * Echo * EEG * Started Ceftriaxone 1mg daily given patient aspirated during lunch today. #Non-insulin dependent diabetes mellitus -On admission glucose 113. -A1c is pending. Plan: * Hold home metformin. * Insulin sliding scale. * Hospital goal to keep glucose level between 140-180 #History of GI bleed - Hemoglobin on admission 13.2. - No active signs of bleeding at this time. Health Maintenance Disposition: tele DVT prophylaxis: Heparin 5,000 U subQ GI prophylaxis: Pantoprazole 40 mg IV daily Diet: NPO Rosales: none Lines: Peripheral IV CODE STATUS: FULL --- Patient plan of care was discussed with the senior resident, Dr. Alfred, and attending physician, Dr. Valentin. Priti Starks DO PGY-1
[2025-07-04] MEDS: cefTRIAXone/D5w 1gm IV premix 1 GM/50 ML BAG IV (17:52)
--- NOTE | 2025-07-04 17:58 | PC.NURSE ---
I ATTEMPTED TO CONTACT DR NARCISA PALMER, ER SUPERVISOR [employer] FOR [facility] AT [phone] WITH NO ANSWER AND MAIL BOX IS FULL SO I COULD NOT LEAVE A MESSAGE. I WILL ATTEMPT TO FIND ANOTHER CONTACT INFO.
--- NOTE | 2025-07-04 18:04 | PC.NURSE ---
I ATTEMPTED TO CONTACT [employer] ANALYST AT [facility] AT [phone], NO ANSWER MESSAGE LEFT AT THIS TIME.
--- NOTE | 2025-07-04 18:45 | PC.NURSE ---
PT TAKEN TO MRI.
[2025-07-04] MEDS: HEPARIN SOD INJ 5000 UNIT/ML VIAL SC (20:51)
[2025-07-05] VITALS (9 sets, daily range): BP systolic 139–168; BP diastolic 79–94; PULSE 62–91; RESP 14–99; TEMP 36.2–36.4; O2SAT 95–97; BMI 27.4
[2025-07-05 06:20] LABS: Basophils # (Auto) 0.1 Thou/mm3 (0.0-0.2); Basophils % (Auto) 1 % (0-2.5); Eosinophils # (Auto) 0.3 Thou/mm3 (0.0-0.5); Eosinophils % (Auto) 3 % (0-10); Hematocrit 39.9 % (41.0-53.0); Hemoglobin 13.3 g/dL (13.5-16.0); Immature Granulocytes Auto 0.03 Thou/mm3 (0.00-0.00); Lymphocytes # (Auto) 2.8 Thou/mm3 (1.0-4.8); Lymphocytes % (Auto) 26 % (10-50); Mean Corpuscular HGB Conc 33.3 g/dl (31.0-37.0); Mean Corpuscular Hemoglobin 30.9 pg (25.0-35.0); Mean Corpuscular Volume 93 fL (80-100); Monocytes # (Auto) 0.9 Thou/mm3 (0.0-0.8); Monocytes % (Auto) 8 % (0-12); Neutrophils # (Auto) 6.9 Thou/mm3 (1.8-7.7); Neutrophils % (Auto) 63 % (37-80); Nucleated Red Blood Cell # 0.00 Thou/mm3 (0.00-0.00); Nucleated Red Blood Cell % 0 /100 WBC (0); Platelet Count 306 Thou/mm3 (140-440); RDW Standard Deviation 45.1 fL (35.1-43.9); Red Blood Count 4.30 Miln/mm3 (4.50-5.90); White Blood Count 10.9 Thou/mm3 (3.8-10.6)
[2025-07-05 06:29] LABS: INR 1.0 (0.9-1.3); Prothrombin Time 10.8 Seconds (9.0-12.2)
[2025-07-05 06:33] LABS: Glucose Estimated Average 146 mg/dL (80-131); Hemoglobin A1C 6.7 % Hgb (4.8-6.0)
[2025-07-05 06:47] LABS: Alanine Aminotransferase 13 U/L (10-49); Albumin, Serum 4.2 gm/dL (3.4-4.8); Albumin/Globulin Ratio 1.2 (1.2-2.2); Alkaline Phosphatase 69 U/L (46-116); Anion Gap 12 (7-16); Aspartate Amino Transferase 18 U/L (0-34); BUN/Creatinine Ratio 11 Ratio (12-20); Bilirubin,Total 0.5 mg/dL (0.3-1.2); Blood Urea Nitrogen 13 mg/dL (9-23); Calcium 9.2 mg/dL (8.3-10.6); Calcium (Corrected) 9.2 mg/dL (8.5-10.1); Carbon Dioxide 24.8 mMol/L (20.0-31.0); Cardiac Risk Estimate 2.9 RATIO (4.0-6.7); Chloride 103 mMol/L (98-107); Cholesterol 100 mg/dL (132-200); Creatinine (Component) 1.2 mg/dL (0.6-1.3); Estimated Creatinine Clearance 46.4 mL/min (>60); Globulin 3.4 gm/dL (2.3-3.5); Glucose 94 mg/dL (74-106); HDL Cholesterol 35 mg/dL (40-60); LDL Cholesterol,Calculated 40 mg/dL (0-130); Magnesium 1.5 mg/dL (1.6-2.6); Osmolality,Calculated 279 (275-295); Phosphorous 3.7 mg/dL (2.4-5.1); Potassium 3.9 mMol/L (3.4-5.1); Sodium 140 mMol/L (136-145); Thyroid Stimulating Hormone 2.30 uIU/mL (0.55-4.78); Total Protein 7.6 gm/dL (5.7-8.2); Triglycerides 124 mg/dL (30-150); eGFR > 60 See Note
[2025-07-05] MEDS: PANTOPRAZOLE 40 MG TABLET PO (08:44)
[2025-07-05] MEDS: Magnesium Sulfate 4 GM Ivpb 4 GM/50 ML BAG IV (08:44)
[2025-07-05] MEDS: HEPARIN SOD INJ 5000 UNIT/ML VIAL SC ×2 (08:44→20:07)
--- NOTE | 2025-07-05 10:18 | ESPR_ITS ---
<Statement entered by Quan Valentin MD - 07/13/25 09:14> I reviewed above note and agree with findings and plans. I have also personally examined the patient with medicine team and went over assessment and plan with medical team including customer success intern and resident physician. <Statement entered by Georges Alfred MD - 07/05/25 15:24> In summary: 82-year-old male with PMHx of T2DM presenting after an episode of choking during dinner, and brief loss of consciousness and dysphagia as noted by his . There there was also right eye droop noted on exam in the ED which have since resolved. We attempted to reach out to the son who is a personal contract but were unsuccessful. Teleneuro recommended admission for stroke and seizure workup. He has a history of GI bleed, and symptoms appear to have resolved since admission, thus TPN is contraindicated and was not offered. 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 CT is also negative. Will admit for MRI and complete stroke workup and seizure workup. Pending further recommendation from in-house neurology. No recurrence of seizures have been noted since admission. I?ve reviewed the note and agree with this assessment and plan, with the exceptions outlined above. I personally went over the labs, imaging, home medications, and prior records, and examined the patient. The case was also reviewed with the attending physician. Please note: this document was transcribed using voice recognition technology; minor inaccuracies may be present. Georges Alfred DO PGY II Documentation for date of: 07/05/25 Subjective Subjective Interval history: No acute overnight events. Patient was seen at bedside this morning. No focal deficits noted on exam. Brain MRI negative for acute infarct. Patient was able to work with physical therapy. Patient passed swallow evaluation with speech therapy and started on dysphagia 2 to reduce choking risks since patient had episode of aspiration yesterday. Echo showed ejection fraction of 55-60%. Exam Vital Signs Temp Pulse Resp BP Pulse Ox O2 Del Method 97.5 F 68 18 168/94 H 96 Room Air 07/05/25 08:00 07/05/25 08:00 07/05/25 08:00 07/05/25 08:00 07/05/25 08:00 07/05/25 08:00 Narrative Exam Physical Exam General: Awake and in no acute distress. Non-toxic appearing. HEENT: Normocephalic, atraumatic, extraocular movements intact, pupils equal and reactive to light. Heart: Regular rate and rhythm, no murmurs, rubs or gallops. Lungs: Clear to auscultation with no wheezing or crackles bilaterally. Non- labored respirations, symmetric chest rise, no use of accessory muscles. Abdomen: Soft, nondistended, nontender. No guarding or rebound tenderness. Neurologic: No obvious gross neurological deficit, and patient able to move all 4 extremities. Extremities: No edema, clubbing or cyanosis. Skin: Warm and dry without rashes. Psychiatric: Cooperative, appropriate mood and affect Objective Labs 07/05/25 05:32 07/05/25 05:32 Labs: Laboratory Results - last 24 hr 07/04/25 07/04/25 07/04/25 14:57 16:39 16:40 WBC 10.1 RBC 4.34 L Hgb 13.2 L Hct 41.0 MCV 95 MCH 30.4 MCHC 32.2 RDW Std Deviation 46.0 H Plt Count 308 Neut % (Auto) 52 Lymph % (Auto) 37 [place] % (Auto) 7 Eos % (Auto) 3 Baso % (Auto) 1 Neut # (Auto) 5.2 Lymph # (Auto) 3.7 [place] # (Auto) 0.7 Eos # (Auto) 0.3 Baso # (Auto) 0.1 Immature Gran # (Auto) 0.02 H Absolute Nucleated RBC 0.00 Immature Gran % 0 Nucleated RBC % 0 PT 10.5 INR 1.0 APTT 27.4 Sodium 139 Potassium 4.1 Chloride 104 Carbon Dioxide 24.4 Anion Gap 11 BUN 14 Creatinine 1.4 H Estim Creat Clear Calc Not Performed. eGFR 50 L BUN/Creatinine Ratio 10 L Glucose [address] Glu mg/dL Hemoglobin A1c Calculated Osmolality 279 Calcium 9.5 Corrected Calcium 9.5 Phosphorus Magnesium 1.6 Total Bilirubin 0.3 AST 19 ALT 15 Alkaline Phosphatase 73 Troponin I < 0.020 B-Natriuretic Peptide 53 Total Protein 8.0 Albumin 4.5 Globulin 3.5 Albumin/Globulin Ratio 1.3 Triglycerides Cholesterol LDL Cholesterol, Calc HDL Cholesterol Cholesterol/HDL Ratio TSH Ur Collection Type Clean Catch Urine Color Lt-Yellow Urine Clarity Clear Urine pH 6.0 Ur Specific [place] 1.038 H Urine Protein 2+ A Urine Glucose (UA) Negative Urine Ketones Negative Urine Blood Negative Urine Nitrite Negative Urine Bilirubin Negative Urine Urobilinogen (Auto) Negative Ur Leukocyte Esterase Negative Urine RBC 3 Urine WBC 2 Ur Squamous Epith Cells 0 Urine Bacteria None Ur Culture Indicated? Not Indicated Urine Opiates Screen Negative Urine Fentanyl Screen Negative Ur Barbiturates Screen Negative U Amphetamin/Meth Scrn Negative U Benzodiazepines Scrn Negative U Cocaine Metab Screen Negative U Marijuana (THC) Screen Negative Ethyl Alcohol < 3.0 07/04/25 07/05/25 16:43 05:32 WBC 10.9 H RBC 4.30 L Hgb 13.3 L Hct 39.9 L MCV 93 MCH 30.9 MCHC 33.3 RDW Std Deviation 45.1 H Plt Count 306 Neut % (Auto) 63 Lymph % (Auto) 26 [place] % (Auto) 8 Eos % (Auto) 3 Baso % (Auto) 1 Neut # (Auto) 6.9 Lymph # (Auto) 2.8 [place] # (Auto) 0.9 H Eos # (Auto) 0.3 Baso # (Auto) 0.1 Immature Gran # (Auto) 0.03 H Absolute Nucleated RBC 0.00 Immature Gran % 0 Nucleated RBC % 0 PT 10.8 INR 1.0 APTT Sodium 140 Potassium 3.9 Chloride 103 Carbon Dioxide 24.8 Anion Gap 12 BUN 13 Creatinine 1.2 Estim Creat Clear Calc 46.4 L eGFR > 60 BUN/Creatinine Ratio 11 L Glucose [address] Glu mg/dL 146 H Hemoglobin A1c 6.7 H Calculated Osmolality 279 Calcium 9.2 Corrected Calcium 9.2 Phosphorus 3.7 Magnesium 1.5 L Total Bilirubin 0.5 AST 18 ALT 13 Alkaline Phosphatase 69 Troponin I < 0.020 B-Natriuretic Peptide Total Protein 7.6 Albumin 4.2 Globulin 3.4 Albumin/Globulin Ratio 1.2 Triglycerides 124 Cholesterol 100 L LDL Cholesterol, Calc 40 HDL Cholesterol 35 L Cholesterol/HDL Ratio 2.9 L TSH 2.30 Ur Collection Type Urine Color Urine Clarity Urine pH Ur Specific [place] Urine Protein Urine Glucose (UA) Urine Ketones Urine Blood Urine Nitrite Urine Bilirubin Urine Urobilinogen (Auto) Ur Leukocyte Esterase Urine RBC Urine WBC Ur Squamous Epith Cells Urine Bacteria Ur Culture Indicated? Urine Opiates Screen Urine Fentanyl Screen Ur Barbiturates Screen U Amphetamin/Meth Scrn U Benzodiazepines Scrn U Cocaine Metab Screen U Marijuana (THC) Screen Ethyl Alcohol Quality Measures Quality Measures VTE prophylaxis Advance care planning discussed with:: patient Assessment & Plan Assessment Current Active Medications: Generic Name Dose Route Start Last Admin Trade Name Freq PRN Reason Stop Dose Admin Acetaminophen 650 mg 07/04/25 16:29 Acetaminophen 325 Mg Tablet PO 08/03/25 16:28 Q6H PRN Fever >100.4 or pain 1-5 Dextrose 25 ml 07/04/25 16:51 Dextrose 50%-Water Inj 50 Ml Syringe IV 08/03/25 16:50 Q15MIN PRN BG 50-70 responsive npo pt Dextrose 50 ml 07/04/25 16:51 Dextrose 50%-Water Inj 50 Ml Syringe IV 08/03/25 16:50 Q15MIN PRN BG <50 OR BG <70 & pt unresponsive Glucagon 1 mg 07/04/25 16:51 Glucagon Inj 1 Mg Vial IM Q15MIN PRN BG <70, and no IV access Heparin Sodium (Porcine) 5,000 unit 07/04/25 21:00 07/05/25 08:44 Heparin Sod Inj 5000 Unit/Ml Vial SC 07/18/25 20:59 5,000 unit Q12HR [place] Administration Ceftriaxone Sodium/Dextrose 1 gm in 50 mls @ 100 mls/hr 07/04/25 17:00 07/04/25 18:36 Rocephin/D5w 1gm Iv Premix IV 07/11/25 16:59 Infused QPM [place] Infusion Magnesium Sulfate 4 gm in 50 mls @ 12.5 mls/hr 07/05/25 07:43 07/05/25 08:44 Magnesium Sulfate Ivpb IV 07/05/25 11:42 12.5 mls/hr X1 ONE Administration Insulin Human Lispro 0 unit 07/04/25 18:00 07/05/25 05:35 Insulin Lispro (Admelog) 1 Unit/0.01 Ml Unit SC 08/03/25 17:59 Not Given Q6HR [place] Protocol Ondansetron HCl 4 mg 07/04/25 16:29 Ondansetron Inj 2 Mg/Ml Inj 2 Ml IVP 08/03/25 16:28 Q6H PRN NAUSEA OR VOMITING Protocol Oxycodone/Acetaminophen 1 tab 07/04/25 16:29 Oxycodone/Apap 5/325 Tablet PO 07/09/25 16:28 Q6H PRN Pain Scale 6-10 Pantoprazole Sodium 40 mg 07/05/25 09:00 07/05/25 08:44 Pantoprazole 40 Mg Tablet PO 08/04/25 08:59 40 mg QDAY [place] Administration Sennosides 1 tab 07/05/25 09:00 07/05/25 08:44 Senna Tablet PO 08/04/25 08:59 1 tab QDAY [place] Administration Protocol Plan 84-year-old male with a history of hyperlipidemia, prior stroke or left temporal insult (evidenced on imaging), previous GI bleeds, and non-insulin dependent diabetes presented with aphasia and transient right eyelid weakness, admitted for stroke versus seizure workup. #Right eyelid weakness #Acute encephalopathy, postictal state #CVA ruled out - DDX: CVA ruled out, likely TIA. - History stroke/TIA: positive. - Smoking history: positive. - Initial symptoms: Acute aphasia with transient right eyelid weakness. - Initial NIHSS 2. - Initial BP: 150/83. - Initial glucose: 113. - Hemoglobin A1c: 6.7. - Lipids: TG 124, cholesterol 100, LDL 40, HDL 35. - TSH: 2.30. 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 Negative for acute hemorrhage, mass effect or midline shift. - CTA head/neck: No significant neck arterial stenoses. No cerebral large vessel arterial occlusions or thrombus. - MRI/MRA: No gross hemorrhage mass effect or midline shift. No gross acute infarct. Chronic multi-infarct dementia pattern. - TTE: EF 55-60%. - Candidate for IV thrombolysis? No Plan: * Neurology consulted - appreciate recs. * Maintain euglycemia and normal temperature (PRN Acetaminophen). * Neuro checks Q4H. * Aspiration precautions. * PT evaluation. * Bedside Swallow Eval. * DVT Prophylaxis with heparin. * Started Ceftriaxone 1mg daily given patient aspirated during lunch on day of admission. #Dysphagia - Patient aspirated on lunch on the day of admission. - Passed speech therapy swallow evaluation. Plan: * Continue dysphasia diet. #Non-insulin dependent diabetes mellitus -On admission glucose 113. -A1c is pending. Plan: * Hold home metformin. * Insulin sliding scale. * Hospital goal to keep glucose level between 140-180 #History of GI bleed - Hemoglobin on admission 13.2. - No active signs of bleeding at this time. Health Maintenance Disposition: tele DVT prophylaxis: Heparin 5,000 U subQ GI prophylaxis: Pantoprazole 40 mg IV daily Diet: NPO [place]: none Lines: Peripheral IV CODE STATUS: FULL --- Patient plan of care was discussed with the senior resident, Dr. Alfred, and attending physician, Dr. Valentin. Priti Starks DO PGY-1
--- NOTE | 2025-07-05 19:59 | PD.RESCONSUL ---
HPI Data of Consult Requesting Physician: Quan Valentin MD Admitting Provider: Quan Valentin MD Attending Provider: Quan Valentin MD Primary Care Provider: Kit Khan MD Consult Narrative Reason for consult: Stroke/seizure rule out History of present illness: 84-year-old Tu[place] speaking male with a history of hyperlipidemia, prior stroke or other insult to the left temporal region (evidenced on imaging), previous GI bleeds, and non-insulin dependent diabetes presented with an abrupt onset of aphasia that occurred shortly after choking on his lunch. Patient was in his usual state of health until 1:15 PM, at which point patient became non-verbal and had difficulty with opening his right eyelid. Family called EMS and the patient was brought to the ED for further evaluation. Per ED note, patient was minimally responsive, only able to say his name, and not tracking or following commands on arrival. By the time the IM team came to assess the patient, he was able to follow commands and able to used the bedside urinal. Tried to get in touch with patient's son to obtain more information as patient is a poor historian however he did not answer. Teleneuro was consulted and patient's NIHSS was 2. Given his significant improvement, lack of obvious severe deficits, and a history of GI bleeds, teleneuro did not recommend thrombolytics. Neurology was consulted for further management and workup of stroke/seizure. cc:: cc: Quan Valentin MD Past Medical History Past Medical History Comments PMH COMMENT: Past Medical History: as above Social History: - Smoking: smoker - Alcohol: none - Illicit drugs: none Current Medications: pending med recs. Allergies: No known drug allergies. Exam Vital Signs Temp Pulse Resp BP Pulse Ox O2 Del Method 97.0 F 103 H 28 H 133/76 H 97 Room Air 07/06/25 04:00 07/06/25 04:00 07/06/25 04:00 07/06/25 04:00 07/06/25 04:00 07/06/25 00:00 Narrative Exam Physical Exam General: Awake and in no acute distress. Conversational and non-toxic appearing. HEENT: Normocephalic, atraumatic, mucous membranes moist. Heart: Regular rate and rhythm, normal S1 and S2, no murmurs. Lungs: Clear to auscultation with no wheezing or crackles. Abdomen: Soft, nondistended, nontender, positive bowel sounds. ?No guarding or rebound tenderness. Neuro Stroke Exam: -Alert and oriented x3. -CN II-XII intact. -Normal visual donato. -Normal fluent speech. -No facial droop. -Strength 5/5 bilateral arms, 5/5 nipple threader strength. -Strength 5/5 bilateral lower extremities. -Intact sensation bilaterally. -Normal [id number], normal zlzm-[id number] testing. Extremities: No edema. Skin: No rash or ecchymoses. Results Labs 07/06/25 04:42 07/06/25 04:42 Labs: Short CBC 07/05/25 07/06/25 Range/Units 05:32 04:42 WBC 10.9 H 11.0 H (3.8-10.6) Thou/mm3 Hgb 13.3 L 13.4 L (13.5-16.0) g/dL Hct 39.9 L 40.7 L (41.0-53.0) % Plt Count 306 315 (140-440) Thou/mm3 [facility] 07/05/25 05:32 Sodium 140 Potassium 3.9 Chloride 103 Carbon Dioxide 24.8 BUN 13 Creatinine 1.2 Glucose 94 Calcium 9.2 Liver Function 07/05/25 Range/Units 05:32 Total Bilirubin 0.5 (0.3-1.2) mg/dL AST 18 (0-34) U/L ALT 13 (10-49) U/L Alkaline Phosphatase 69 (46-116) U/L Albumin 4.2 (3.4-4.8) gm/dL Quality Measures Quality Measures VTE prophylaxis Advance care planning discussed with:: patient, spouse and child Medications Home Medications and Allergies Home Medications ?Medication ?Instructions ?Recorded ?Confirmed ?Type acetaminophen 325 mg tablet 650 mg PO Q6H 07/04/25 07/04/25 History (Tylenol) atorvastatin 20 mg tablet (Lipitor) 20 mg PO QDAY 07/04/25 07/04/25 History losartan 25 mg tablet 25 mg PO QDAY 07/04/25 07/04/25 History metformin 500 mg tablet 500 mg PO BID 07/04/25 07/04/25 History Allergies Allergy/AdvReac Type Severity Reaction Status Date / Time No Known Allergies Allergy Unverified 05/16/23 16:02 Visit Medications Acetaminophen (Acetaminophen 325 Mg Tablet) 650 mg PO Q6H PRN PRN Reason: Fever >100.4 or pain 1-5 Stop: 08/03/25 16:28 Dextrose (Dextrose 50%-Water Inj 50 Ml Syringe) 25 ml IV Q15MIN PRN PRN Reason: BG 50-70 responsive npo pt Stop: 08/03/25 16:50 Dextrose (Dextrose 50%-Water Inj 50 Ml Syringe) 50 ml IV Q15MIN PRN PRN Reason: BG <50 OR BG <70 & pt unresponsive Stop: 08/03/25 16:50 Glucagon (Glucagon Inj 1 Mg Vial) 1 mg IM Q15MIN PRN PRN Reason: BG <70, and no IV access Heparin Sodium (Porcine) (Heparin Sod Inj 5000 Unit/Ml Vial) 5,000 unit SC Q12HR [facility] Stop: 07/18/25 20:59 Last Admin: 07/05/25 20:07 Dose: 5,000 unit Ceftriaxone Sodium/Dextrose (Rocephin/D5w 1gm Iv Premix) 1 gm in 50 mls @ 100 mls/hr IV QPM [facility] Stop: 07/11/25 16:59 Last Admin: 07/05/25 20:06 Dose: 100 mls/hr Insulin Human Lispro (Insulin Lispro (Admelog) 1 Unit/0.01 Ml Unit) 0 unit SC [facility]; Protocol Stop: 08/04/25 16:59 Last Admin: 07/05/25 20:03 Dose: Not Given Ondansetron HCl (Ondansetron Inj 2 Mg/Ml Inj 2 Ml) 4 mg IVP Q6H PRN; Protocol PRN Reason: NAUSEA OR VOMITING Stop: 08/03/25 16:28 Oxycodone/Acetaminophen (Oxycodone/Apap 5/325 Tablet) 1 tab PO Q6H PRN PRN Reason: Pain Scale 6-10 Stop: 07/09/25 16:28 Pantoprazole Sodium (Pantoprazole 40 Mg Tablet) 40 mg PO QDAY [facility] Stop: 08/04/25 08:59 Last Admin: 07/05/25 08:44 Dose: 40 mg Sennosides (Senna Tablet) 1 tab PO QDAY [facility]; Protocol Stop: 08/04/25 08:59 Last Admin: 07/05/25 08:44 Dose: 1 tab Discontinued Medications Diphenhydramine HCl (Diphenhydramine Inj 50 Mg/Ml Vial) 25 mg IVP X1 ONE Stop: 07/06/25 03:40 Last Admin: 07/06/25 03:49 Dose: 25 mg Magnesium Sulfate (Magnesium Sulfate Ivpb) 4 gm in 50 mls @ 12.5 mls/hr IV X1 ONE Stop: 07/05/25 11:42 Last Admin: 07/05/25 08:44 Dose: 12.5 mls/hr Insulin Human Lispro (Insulin Lispro (Admelog) 1 Unit/0.01 Ml Unit) 0 unit SC Q6HR [place]; Protocol Stop: 08/03/25 17:59 Last Admin: 07/05/25 11:32 Dose: Not Given Lorazepam (Lorazepam 2 Mg/Ml Vial) 1 mg IVP X1 ONE Stop: 07/04/25 14:54 Last Admin: 07/04/25 15:10 Dose: 1 mg Olanzapine (Olanzapine 5 Mg Tablet) 5 mg PO X1 ONE Stop: 07/05/25 23:13 Last Admin: 07/05/25 23:16 Dose: 5 mg Quetiapine Fumarate (Quetiapine Fumarate 25 Mg Tablet) 25 mg PO X1 ONE Stop: 07/06/25 03:40 Last Admin: 07/06/25 03:52 Dose: 25 mg Risperidone (Risperidone 0.5 Mg Tablet) 0.5 mg PO X1 ONE Stop: 07/06/25 00:15 Last Admin: 07/06/25 00:37 Dose: 0.5 mg Assessment & Plan Plan 84-year-old male with a history of hyperlipidemia, prior stroke or left temporal insult (evidenced on imaging), previous GI bleeds, and non-insulin dependent diabetes presented with aphasia and transient right eyelid weakness, admitted for stroke versus seizure workup. #Episode of aphasia and right eyelid droop #TIA vs. vasovagal vs. seizure MRI showed multi infarct dementia pattern, however patient motion decreased quality of image Patient according to did not know any history of previous stroke Echo showed 55-60% and grade I diastolic dysfunction, negative bubble study Patient likely has some level of vascular dementia -NO aspirin or Plavix due to patient history of GI bleed x3 -Pending EEG reading Patient was discussed with the Neurology attending, Dr. Gregorio. Thank you for allowing us to participate in the care of this patient. Tasia Doe, PGY-3 Attending Provider Attestation/Addendum I personally have seen and examined the patient at the bedside and I agreed with the resident's findings assessment and plan of care. Patient presented with altered mental status. Clinically, radiologically and electrophysiologically consistent with chronic multi-infarct dementia. EEG showed slowing consistent with dementia. Continue with current management, no antiplatelet therapy secondary to GI bleed in the past..
[2025-07-05] MEDS: cefTRIAXone/D5w 1gm IV premix 1 GM/50 ML BAG IV (20:06)
--- NOTE | 2025-07-05 23:16 | PC.NURSE ---
PT ATTEMPTING TO GET OUT BED MULTIPLE TIMES. UNDIRECTABLE AT TIMES. AT BEDSIDE. ORDERS FOR OLANZIPINE GIVEN PER DR. AQUINO.
[2025-07-06] VITALS (9 sets, daily range): BP systolic 122–158; BP diastolic 67–93; PULSE 64–120; RESP 16–99; TEMP 36.1–36.4; O2SAT 94–100; BMI 22.7
[2025-07-06 05:38] LABS: Basophils # (Auto) 0.1 Thou/mm3 (0.0-0.2); Basophils % (Auto) 1 % (0-2.5); Eosinophils # (Auto) 0.2 Thou/mm3 (0.0-0.5); Eosinophils % (Auto) 2 % (0-10); Hematocrit 40.7 % (41.0-53.0); Hemoglobin 13.4 g/dL (13.5-16.0); Immature Granulocytes Auto 0.02 Thou/mm3 (0.00-0.00); Lymphocytes # (Auto) 3.3 Thou/mm3 (1.0-4.8); Lymphocytes % (Auto) 30 % (10-50); Mean Corpuscular HGB Conc 32.9 g/dl (31.0-37.0); Mean Corpuscular Hemoglobin 30.8 pg (25.0-35.0); Mean Corpuscular Volume 94 fL (80-100); Monocytes # (Auto) 0.8 Thou/mm3 (0.0-0.8); Monocytes % (Auto) 8 % (0-12); Neutrophils # (Auto) 6.5 Thou/mm3 (1.8-7.7); Neutrophils % (Auto) 59 % (37-80); Nucleated Red Blood Cell # 0.00 Thou/mm3 (0.00-0.00); Nucleated Red Blood Cell % 0 /100 WBC (0); Platelet Count 315 Thou/mm3 (140-440); RDW Standard Deviation 45.8 fL (35.1-43.9); Red Blood Count 4.35 Miln/mm3 (4.50-5.90); White Blood Count 11.0 Thou/mm3 (3.8-10.6)
[2025-07-06 06:22] LABS: Alanine Aminotransferase 11 U/L (10-49); Albumin, Serum 4.6 gm/dL (3.4-4.8); Albumin/Globulin Ratio 1.3 (1.2-2.2); Alkaline Phosphatase 73 U/L (46-116); Anion Gap 16 (7-16); Aspartate Amino Transferase 18 U/L (0-34); BUN/Creatinine Ratio 12 Ratio (12-20); Bilirubin,Total 0.6 mg/dL (0.3-1.2); Blood Urea Nitrogen 16 mg/dL (9-23); Calcium 9.4 mg/dL (8.3-10.6); Calcium (Corrected) 9.4 mg/dL (8.5-10.1); Carbon Dioxide 25.5 mMol/L (20.0-31.0); Chloride 101 mMol/L (98-107); Creatinine (Component) 1.3 mg/dL (0.6-1.3); Estimated Creatinine Clearance 39.5 mL/min (>60); Globulin 3.5 gm/dL (2.3-3.5); Glucose 120 mg/dL (74-106); Magnesium 1.8 mg/dL (1.6-2.6); Osmolality,Calculated 285 (275-295); Phosphorous 3.8 mg/dL (2.4-5.1); Potassium 3.8 mMol/L (3.4-5.1); Sodium 142 mMol/L (136-145); Total Protein 8.1 gm/dL (5.7-8.2); eGFR 55 See Note
[2025-07-06] MEDS: HEPARIN SOD INJ 5000 UNIT/ML VIAL SC ×2 (08:06→20:37)
[2025-07-06] MEDS: Magnesium Sulfate 2 GM Ivpb 2 GM/50 ML BAG IV (08:06)
[2025-07-06] MEDS: PANTOPRAZOLE 40 MG TABLET PO (08:06)
[2025-07-06] MEDS: RINGERS LACTATED 1000 ML 500 ML 100 ML IV (09:46)
--- NOTE | 2025-07-06 10:54 | EKG_ITS ---
[facility] Test Date: 2025-07-06 Pat Name: JUSTIN SAMPSON Department: Room: S268A Gender: Male Shuttle Spotter: HARMONY : 1940 Requested By: Milan Singh Order Number: [id number] Reading MD: Milan Singh Measurements Intervals [place] Rate: 84 P: 44 CT: 194 QRS: -21 QRSD: 73 T: 33 QT: 358 QTc: 426 Interpretive Statements SINUS RHYTHM INFERIOR MYOCARDIAL INFARCTION , PROBABLY OLD Compared to ECG 07/04/2025 15:34:00 Myocardial infarct finding now present First degree AV block no longer present /store/S0/[id number]
--- NOTE | 2025-07-06 13:47 | PC.SS ---
DATA ADMINISTRATOR conducted bedside contact with the patient conduct initial assessment and to discuss discharge planning.? At bedside with patient was sonDeangelo Jr .? DATA ADMINISTRATOR obtained information from patient?s son.? Patient resides at home with spouse.? Patient does not utilize DME to assist with ambulation.? Patient does not utilize home oxygen.? Patient possesses the ability to complete ADL?s independently.? Patient?s surrogate medical decision maker is sonDeangelo Jr.? Patient?s PCP is Dr. Khan.? [place] does not possess any specialty providers.? Patient does not participate with dialysis.? Patient utilizes [facility] for medication services.? Plan is for the patient to transition to SNF at the time of discharge.? Preferred SNF is [facility].? Patient possesses coverage for transportation to SNF.? No further discharge needs identified by the patient.? No further intervention required at this time, psychosocial rehabilitation counselor will be available to address any further concerns.? Next of Kin: Deangelo Williamsonriaz D/C Plan: SNF
--- NOTE | 2025-07-06 14:41 | ESPR_ITS ---
Documentation for date of: 07/06/25 Subjective Subjective Interval history: Patient seen in Telemetry. Last night the patient was restless and trying to get out of bed, and was non redirectable. Likely sundowning and hospital delirium. He received risperidone 0.5 mg PO x1, diphenhydramine 25 mg IV x1, and quetiapine 25 mg PO x1 in attempts to calm him. This afternoon he is calm, awake, and compliant. EEG shows slow waves in frontal and anterior areas indicative of dementia. Patient is cleared for discharge, family reported they want him to go to SNF. Exam Vital Signs Temp Pulse Resp BP Pulse Ox O2 Del Method 97.0 F 88 16 133/83 H 94 L Room Air 07/06/25 12:00 07/06/25 12:00 07/06/25 12:00 07/06/25 12:00 07/06/25 12:00 07/06/25 12:00 Narrative Exam Physical Exam General: Awake and in no acute distress. [place] speaking. Conversational and non-toxic appearing. HEENT: Normocephalic, atraumatic, mucous membranes moist. Heart: Regular rate and rhythm, normal S1 and S2, no murmurs. Lungs: Clear to auscultation with no wheezing or crackles. Abdomen: Soft, nondistended, nontender, positive bowel sounds. ?No guarding or rebound tenderness. Neuro Stroke Exam: -Alert and oriented x3. -CN II-XII intact. -Normal visual donato. -Normal fluent speech. -No facial droop. 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 -Strength 5/5 bilateral lower extremities. -Intact sensation bilaterally. -Normal [id number], normal [id number] testing. Extremities: No edema. Skin: No rash or ecchymoses. Objective Labs 07/07/25 05:26 07/07/25 05:26 Labs: Laboratory Results - last 24 hr 07/06/25 04:42 WBC 11.0 H RBC 4.35 L Hgb 13.4 L Hct 40.7 L MCV 94 MCH 30.8 MCHC 32.9 RDW Std Deviation 45.8 H Plt Count 315 Neut % (Auto) 59 Lymph % (Auto) 30 [place] % (Auto) 8 Eos % (Auto) 2 Baso % (Auto) 1 Neut # (Auto) 6.5 Lymph # (Auto) 3.3 [place] # (Auto) 0.8 Eos # (Auto) 0.2 Baso # (Auto) 0.1 Immature Gran # (Auto) 0.02 H Absolute Nucleated RBC 0.00 Immature Gran % 0 Nucleated RBC % 0 Sodium 142 Potassium 3.8 Chloride 101 Carbon Dioxide 25.5 Anion Gap 16 BUN 16 Creatinine 1.3 Estim Creat Clear Calc 39.5 L eGFR 55 L BUN/Creatinine Ratio 12 Glucose 120 H Calculated Osmolality 285 Calcium 9.4 Corrected Calcium 9.4 Phosphorus 3.8 Magnesium 1.8 Total Bilirubin 0.6 AST 18 ALT 11 Alkaline Phosphatase 73 Total Protein 8.1 Albumin 4.6 Globulin 3.5 Albumin/Globulin Ratio 1.3 Quality Measures Quality Measures VTE prophylaxis Advance care planning discussed with:: patient and spouse Assessment & Plan Assessment Current Active Medications: Generic Name Dose Route Start Last Admin Trade Name Freq PRN Reason Stop Dose Admin Acetaminophen 650 mg 07/04/25 16:29 Acetaminophen 325 Mg Tablet PO 08/03/25 16:28 Q6H PRN Fever >100.4 or pain 1-5 Dextrose 25 ml 07/04/25 16:51 Dextrose 50%-Water Inj 50 Ml Syringe IV 08/03/25 16:50 Q15MIN PRN BG 50-70 responsive npo pt Dextrose 50 ml 07/04/25 16:51 Dextrose 50%-Water Inj 50 Ml Syringe IV 08/03/25 16:50 Q15MIN PRN BG <50 OR BG <70 & pt unresponsive Glucagon 1 mg 07/04/25 16:51 Glucagon Inj 1 Mg Vial IM Q15MIN PRN BG <70, and no IV access Heparin Sodium (Porcine) 5,000 unit 07/04/25 21:00 07/06/25 08:06 Heparin Sod Inj 5000 Unit/Ml Vial SC 07/18/25 20:59 5,000 unit Q12HR [place] Administration Ceftriaxone Sodium/Dextrose 1 gm in 50 mls @ 100 mls/hr 07/04/25 17:00 07/05/25 20:06 Rocephin/D5w 1gm Iv Premix IV 07/11/25 16:59 100 mls/hr QPM [place] Administration Lactated Ringer's 500 mls @ 100 mls/hr 07/06/25 08:25 07/06/25 12:00 Lactated Ringers IV 08/05/25 08:24 999 mls/hr .Q5H [place] Infusion Insulin Human Lispro 0 unit 07/05/25 17:00 07/06/25 13:25 Insulin Lispro (Admelog) 1 Unit/0.01 Ml Unit SC 08/04/25 16:59 Not Given ACHS [place] Protocol Ondansetron HCl 4 mg 07/04/25 16:29 Ondansetron Inj 2 Mg/Ml Inj 2 Ml IVP 08/03/25 16:28 Q6H PRN NAUSEA OR VOMITING Protocol Oxycodone/Acetaminophen 1 tab 07/04/25 16:29 Oxycodone/Apap 5/325 Tablet PO 07/09/25 16:28 Q6H PRN Pain Scale 6-10 Pantoprazole Sodium 40 mg 07/05/25 09:00 07/06/25 08:06 Pantoprazole 40 Mg Tablet PO 08/04/25 08:59 40 mg QDAY [place] Administration Quetiapine Fumarate 25 mg 07/06/25 21:00 Quetiapine Fumarate 25 Mg Tablet PO 08/05/25 20:59 HS [place] Sennosides 1 tab 07/05/25 09:00 07/06/25 08:06 Senna Tablet PO 08/04/25 08:59 1 tab QDAY [place] Administration Protocol Plan 84-year-old male with a history of hyperlipidemia, prior stroke or left temporal insult (evidenced on imaging), previous GI bleeds, and non-insulin dependent diabetes presented with aphasia and transient right eyelid weakness, admitted for stroke versus seizure workup. #Episode of aphasia and right eyelid droop #TIA vs. vasovagal #Vascular dementia #Hospital delirium MRI showed multi infarct dementia pattern, however patient motion decreased quality of image Patient according to did not know any history of previous stroke Echo showed 55-60% and grade I diastolic dysfunction, negative bubble study Patient likely has some level of vascular dementia -NO aspirin or Plavix due to patient history of GI bleed x3 -EEG reading showed slow waves in frontal and anterior areas indicative of dementia -Patient cleared for discharge -May use seroquel 25 mg scheduled for sundowning Patient was discussed with the Neurology attending, Dr. Gregorio. Thank you for allowing us to participate in the care of this patient. Tasia Doe, PGY-3 Attending Provider Attestation/Addendum I personally have seen and examined the patient at the bedside and agreed with resident's findings, assessment and plan of care. Will continue with the current management, patient is stable for discharge on current meds, and Seroquel as needed for agitation.
--- NOTE | 2025-07-06 15:44 | ESPR_ITS ---
<Statement entered by Georges Alfred MD - 07/07/25 06:24> In summary: 82-year-old male with PMHx of T2DM presenting after an episode of choking during dinner, and brief loss of consciousness and dysphagia as noted by his . There there was also right eye droop noted on exam in the ED which have since resolved. We attempted to reach out to the son who is a personal contract but were unsuccessful. Teleneuro recommended admission for stroke and seizure workup. He has a history of GI bleed, and symptoms appear to have resolved since admission, thus TPN is contraindicated and was not offered. 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 CT is also negative. Will admit for MRI and complete stroke workup and seizure workup. Pending further recommendation from in-house neurology. EEG taken but pending reads. I?ve reviewed the note and agree with this assessment and plan, with the exceptions outlined above. I personally went over the labs, imaging, home medications, and prior records, and examined the patient. The case was also reviewed with the attending physician. Please note: this document was transcribed using voice recognition technology; minor inaccuracies may be present. Georges Alfred DO PGY II Documentation for date of: 07/06/25 Subjective Subjective Interval history: Overnight, the patient exhibited agitation and attempted to get out of bed multiple times. Patient was given Olanzapine, followed by Risperidone, Benadryl, and Quetiapine. Due to ongoing restlessness, the patient was placed in medical wrist restraints. This morning, the patient was evaluated at the bedside and appeared drowsy. Later in the morning, the patient became agitated again. The patient received 500cc of LR solution for hypotension (87/54), which resolved after fluid administration. The patient remained in restraints for safety. Neurology has approved low-dose Quetiapine at night for agitation. EEG showed slowing in the frontal and anterior temporal regions, suggestive of dementia, but no focal epileptiform discharges. An EKG was performed, and the QT interval was within normal limits. Exam Vital Signs Temp Pulse Resp BP Pulse Ox O2 Del Method 97.0 F 88 16 133/83 H 94 L Room Air 07/06/25 12:00 07/06/25 12:00 07/06/25 12:00 07/06/25 12:00 07/06/25 12:07/06/25 12:00 Narrative Exam Physical Exam General: Awake and in no acute distress. Non-toxic appearing. Drowsy. HEENT: Normocephalic, atraumatic, extraocular movements intact, pupils equal and reactive to light. Heart: Regular rate and rhythm, no murmurs, rubs or gallops. Lungs: Clear to auscultation with no wheezing or crackles bilaterally. Non- labored respirations, symmetric chest rise, no use of accessory muscles. Abdomen: Soft, nondistended, nontender. No guarding or rebound tenderness. Neurologic: No obvious gross neurological deficit, and patient able to move all 4 extremities. Extremities: No edema, clubbing or cyanosis. Bilateral wrist restraints. Skin: Warm and dry without rashes. Psychiatric: Cooperative, appropriate mood and affect Objective Labs 07/07/25 05:26 07/06/25 04:42 Labs: Laboratory Results - last 24 hr 07/06/25 04:42 WBC 11.0 H RBC 4.35 L Hgb 13.4 L Hct 40.7 L MCV 94 MCH 30.8 MCHC 32.9 RDW Std Deviation 45.8 H Plt Count 315 Neut % (Auto) 59 Lymph % (Auto) 30 [place] % (Auto) 8 Eos % (Auto) 2 Baso % (Auto) 1 Neut # (Auto) 6.5 Lymph # (Auto) 3.3 [place] # (Auto) 0.8 Eos # (Auto) 0.2 Baso # (Auto) 0.1 Immature Gran # (Auto) 0.02 H Absolute Nucleated RBC 0.00 Immature Gran % 0 Nucleated RBC % 0 Sodium 142 Potassium 3.8 Chloride 101 Carbon Dioxide 25.5 Anion Gap 16 BUN 16 Creatinine 1.3 Estim Creat Clear Calc 39.5 L eGFR 55 L BUN/Creatinine Ratio 12 Glucose 120 H Calculated Osmolality 285 Calcium 9.4 Corrected Calcium 9.4 Phosphorus 3.8 Magnesium 1.8 Total Bilirubin 0.6 AST 18 ALT 11 Alkaline Phosphatase 73 Total Protein 8.1 Albumin 4.6 Globulin 3.5 Albumin/Globulin Ratio 1.3 Quality Measures Quality Measures VTE prophylaxis Advance care planning discussed with:: patient Assessment & Plan Assessment Current Active Medications: Generic Name Dose Route Start Last Admin Trade Name Freq PRN Reason Stop Dose Admin Acetaminophen 650 mg 07/04/25 16:29 Acetaminophen 325 Mg Tablet PO 08/03/25 16:28 Q6H PRN Fever >100.4 or pain 1-5 Dextrose 25 ml 07/04/25 16:51 Dextrose 50%-Water Inj 50 Ml Syringe IV 08/03/25 16:50 Q15MIN PRN BG 50-70 responsive npo pt Dextrose 50 ml 07/04/25 16:51 Dextrose 50%-Water Inj 50 Ml Syringe IV 08/03/25 16:50 Q15MIN PRN BG <50 OR BG <70 & pt unresponsive Glucagon 1 mg 07/04/25 16:51 Glucagon Inj 1 Mg Vial IM Q15MIN PRN BG <70, and no IV access Heparin Sodium (Porcine) 5,000 unit 07/04/25 21:00 07/06/25 08:06 Heparin Sod Inj 5000 Unit/Ml Vial SC 07/18/25 20:59 5,000 unit Q12HR [place] Administration Ceftriaxone Sodium/Dextrose 1 gm in 50 mls @ 100 mls/hr 07/04/25 17:00 07/05/25 20:06 Rocephin/D5w 1gm Iv Premix IV 07/11/25 16:59 100 mls/hr QPM [place] Administration Insulin Human Lispro 0 unit 07/05/25 17:00 07/06/25 13:25 Insulin Lispro (Admelog) 1 Unit/0.01 Ml Unit SC 08/04/25 16:59 Not Given ACHS [place] Protocol Ondansetron HCl 4 mg 07/04/25 16:29 Ondansetron Inj 2 Mg/Ml Inj 2 Ml IVP 08/03/25 16:28 Q6H PRN NAUSEA OR VOMITING Protocol Oxycodone/Acetaminophen 1 tab 07/04/25 16:29 Oxycodone/Apap 5/325 Tablet PO 07/09/25 16:28 Q6H PRN Pain Scale 6-10 Pantoprazole Sodium 40 mg 07/05/25 09:00 07/06/25 08:06 Pantoprazole 40 Mg Tablet PO 08/04/25 08:59 40 mg QDAY [place] Administration Quetiapine Fumarate 25 mg 07/06/25 21:00 Quetiapine Fumarate 25 Mg Tablet PO 08/05/25 20:59 HS [place] Sennosides 1 tab 07/05/25 09:00 07/06/25 08:06 Senna Tablet PO 08/04/25 08:59 1 tab QDAY [place] Administration Protocol Plan 84-year-old male with a history of hyperlipidemia, prior stroke or left temporal insult (evidenced on imaging), previous GI bleeds, and non-insulin dependent diabetes presented with aphasia and transient right eyelid weakness, admitted for stroke versus seizure workup. #Right eyelid weakness #Acute encephalopathy, postictal state #CVA ruled out - DDX: CVA ruled out, likely TIA. - History stroke/TIA: positive. - Smoking history: positive. - Initial symptoms: Acute aphasia with transient right eyelid weakness. - Initial NIHSS 2. - Initial BP: 150/83. - Initial glucose: 113. - Hemoglobin A1c: 6.7. - Lipids: TG 124, cholesterol 100, LDL 40, HDL 35. - TSH: 2.30. 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 Negative for acute hemorrhage, mass effect or midline shift. - CTA head/neck: No significant neck arterial stenoses. No cerebral large vessel arterial occlusions or thrombus. - MRI/MRA: No gross hemorrhage mass effect or midline shift. No gross acute infarct. Chronic multi-infarct dementia pattern. - TTE: EF 55-60%. - Candidate for IV thrombolysis? No - EEG 07/06/25: abnormal with slowing involving the frontal and anterior temporal areas suggest dementia. No focal epileptiform discharges noted. Plan: * Neurology consulted - appreciate recs. * Maintain euglycemia and normal temperature (PRN Acetaminophen). * Neuro checks Q4H. * Aspiration precautions. * DVT Prophylaxis with heparin. #Aspiration pneumonia #Leukocytosis - Patient was started on Ceftriaxone 1mg daily given patient aspirated during lunch on day of admission. - WBCs uptrending since admission, 10.1 --> 10.9 --> 11.0. Plan: * Continue with Ceftriaxone 1mg daily (07/04-07/11). #Restlessness and Agitation - Patient became agitated and attempted to get out of bed multiple times overnight (07/05-07/06). - Patient was given Olanzapine, followed by Risperidone, Benadryl, and Quetiapine. - Placed on medical restraints as patient remained agitated. - EKG: QTc: 426. Plan: * Continue with bilateral wrist restraints and evaluate in the morning if necessary to continue. * Quetiapine 25mg PO HS. #Dysphagia - Patient aspirated on lunch on the day of admission. - Passed speech therapy swallow evaluation. Plan: * Continue dysphasia diet. #Non-insulin dependent diabetes mellitus -On admission glucose 113. -A1c is pending. Plan: * Hold home metformin. * Insulin sliding scale. * Hospital goal to keep glucose level between 140-180 #History of GI bleed - Hemoglobin on admission 13.2. - No active signs of bleeding at this time. Health Maintenance Disposition: tele DVT prophylaxis: Heparin 5,000 U subQ GI prophylaxis: Pantoprazole 40 mg IV daily Diet: Dysphagia Rosales: none Lines: Peripheral IV CODE STATUS: FULL --- Patient plan of care was discussed with the senior resident, Dr. Alfred, and attending physician, Dr. Lowe. Priti Starks DO PGY-1 Attending Provider Attestation/Addendum I have seen and examined the patient. I was physically present for the herbert portions of the services provided including history, physical exam, diagnosis, treatment plans and orders. I agree with assessment and plan of care as documented by residents. Even though this this note was carefully revised there may still be minor errors in riveting machine operator automatic due to voice recognition software. Grayson Lowe MD
--- NOTE | 2025-07-06 16:11 | PC.SS ---
SNF referral submitted on [facility]. Responses are pending.
--- NOTE | 2025-07-06 18:21 | PC.NURSE ---
notified ,unable to check orthostatic B/P ,pt.uncooperative after several attempts.
[2025-07-06] MEDS: cefTRIAXone/D5w 1gm IV premix 1 GM/50 ML BAG IV (20:37)
[2025-07-07] VITALS: BP 143/79; PULSE 82; PULSE 94; RESP 22; TEMP 36.2; O2SAT 97
[2025-07-07 04:00] VITALS: BP 133/82; PULSE 77; PULSE 81; RESP 20; TEMP 36.1; O2SAT 95
[2025-07-07 06:15] LABS: Basophils # (Auto) 0.1 Thou/mm3 (0.0-0.2); Basophils % (Auto) 1 % (0-2.5); Eosinophils # (Auto) 0.4 Thou/mm3 (0.0-0.5); Eosinophils % (Auto) 5 % (0-10); Hematocrit 41.2 % (41.0-53.0); Hemoglobin 13.6 g/dL (13.5-16.0); Immature Granulocytes Auto 0.03 Thou/mm3 (0.00-0.00); Lymphocytes # (Auto) 2.1 Thou/mm3 (1.0-4.8); Lymphocytes % (Auto) 26 % (10-50); Mean Corpuscular HGB Conc 33.0 g/dl (31.0-37.0); Mean Corpuscular Hemoglobin 31.0 pg (25.0-35.0); Mean Corpuscular Volume 94 fL (80-100); Monocytes # (Auto) 0.9 Thou/mm3 (0.0-0.8); Monocytes % (Auto) 11 % (0-12); Neutrophils # (Auto) 4.7 Thou/mm3 (1.8-7.7); Neutrophils % (Auto) 57 % (37-80); Nucleated Red Blood Cell # 0.00 Thou/mm3 (0.00-0.00); Nucleated Red Blood Cell % 0 /100 WBC (0); Platelet Count 330 Thou/mm3 (140-440); RDW Standard Deviation 45.7 fL (35.1-43.9); Red Blood Count 4.39 Miln/mm3 (4.50-5.90); White Blood Count 8.2 Thou/mm3 (3.8-10.6)
[2025-07-07 06:50] LABS: Alanine Aminotransferase 14 U/L (10-49); Albumin, Serum 4.2 gm/dL (3.4-4.8); Albumin/Globulin Ratio 1.3 (1.2-2.2); Alkaline Phosphatase 69 U/L (46-116); Anion Gap 13 (7-16); Aspartate Amino Transferase 23 U/L (0-34); BUN/Creatinine Ratio 13 Ratio (12-20); Bilirubin,Total 0.5 mg/dL (0.3-1.2); Blood Urea Nitrogen 18 mg/dL (9-23); Calcium 9.1 mg/dL (8.3-10.6); Calcium (Corrected) 9.1 mg/dL (8.5-10.1); Carbon Dioxide 24.9 mMol/L (20.0-31.0); Chloride 104 mMol/L (98-107); Creatinine (Component) 1.4 mg/dL (0.6-1.3); Estimated Creatinine Clearance 36.7 mL/min (>60); Globulin 3.2 gm/dL (2.3-3.5); Glucose 113 mg/dL (74-106); Magnesium 2.1 mg/dL (1.6-2.6); Osmolality,Calculated 286 (275-295); Phosphorous 4.7 mg/dL (2.4-5.1); Potassium 5.1 mMol/L (3.4-5.1); Sodium 142 mMol/L (136-145); Total Protein 7.4 gm/dL (5.7-8.2); eGFR 50 See Note
[2025-07-07 07:56] VITALS: BP 139/83; PULSE 77; RESP 19; TEMP 36.1; O2SAT 98
[2025-07-07 08:00] VITALS: PULSE 80
--- NOTE | 2025-07-07 08:30 | PC.SS ---
Addendum entered by Kyleigh Hawkins 07/07/25 11:34: SS contacted patient's son, Deangelo. First choice was [facility]. Second choice [facility]. SS contacted Maddison from [facility] and she informed SS they are not able to accept due to no male beds available. SS contacted [facility] and they informed SS that they are not contracted with [facility]. [facility] also informed SS that at the time they don't have male beds available. SS contacted patient's son to inform him [facility] accepted. Patient's son informed SS that he would like patient to discharge home. SS updated Team A. Addendum entered by Kyleigh Hawkins 07/07/25 09:58: SS follow up note; SS attempted to contact patient's son, Deangelo, SS left VM with contact number. SS updated Team A. Original Note: SS has attempted multiple times to reach patient's sonDeangelo to present SNF Choices, however patient's son has not been answering, SS left VM with call back number. SS will continue to attempt to contact patients son.
[2025-07-07] MEDS: HEPARIN SOD INJ 5000 UNIT/ML VIAL SC (08:31)
--- NOTE | 2025-07-07 09:46 | PD.RESPRO ---
Documentation for date of: 07/07/25 Exam Vital Signs Temp Pulse Resp BP Pulse Ox O2 Del Method 97.0 F 77 19 139/83 H 98 Room Air 07/07/25 07:56 07/07/25 07:56 07/07/25 07:56 07/07/25 07:56 07/07/25 07:56 07/07/25 07:56 Objective Labs 07/07/25 05:26 07/07/25 05:26 Labs: Laboratory Results - last 24 hr 07/07/25 05:26 WBC 8.2 RBC 4.39 L Hgb 13.6 Hct 41.2 MCV 94 MCH 31.0 MCHC 33.0 RDW Std Deviation 45.7 H Plt Count 330 Neut % (Auto) 57 Lymph % (Auto) 26 [place] % (Auto) 11 Eos % (Auto) 5 Baso % (Auto) 1 Neut # (Auto) 4.7 Lymph # (Auto) 2.1 [place] # (Auto) 0.9 H Eos # (Auto) 0.4 Baso # (Auto) 0.1 Immature Gran # (Auto) 0.03 H Absolute Nucleated RBC 0.00 Immature Gran % 0 Nucleated RBC % 0 Sodium 142 Potassium 5.1 D Chloride 104 Carbon Dioxide 24.9 Anion Gap 13 BUN 18 Creatinine 1.4 H Estim Creat Clear Calc 36.7 L eGFR 50 L BUN/Creatinine Ratio 13 Glucose 113 H Calculated Osmolality 286 Calcium 9.1 Corrected Calcium 9.1 Phosphorus 4.7 Magnesium 2.1 Total Bilirubin 0.5 AST 23 ALT 14 Alkaline Phosphatase 69 Total Protein 7.4 Albumin 4.2 Globulin 3.2 Albumin/Globulin Ratio 1.3 Quality Measures Quality Measures VTE prophylaxis Assessment & Plan Assessment Current Active Medications: Generic Name Dose Route Start Last Admin Trade Name Freq PRN Reason Stop Dose Admin Acetaminophen 650 mg 07/04/25 16:29 Acetaminophen 325 Mg Tablet PO 08/03/25 16:28 Q6H PRN Fever >100.4 or pain 1-5 Dextrose 25 ml 07/04/25 16:51 Dextrose 50%-Water Inj 50 Ml Syringe IV 08/03/25 16:50 Q15MIN PRN BG 50-70 responsive npo pt Dextrose 50 ml 07/04/25 16:51 Dextrose 50%-Water Inj 50 Ml Syringe IV 08/03/25 16:50 Q15MIN PRN BG <50 OR BG <70 & pt unresponsive Glucagon 1 mg 07/04/25 16:51 Glucagon Inj 1 Mg Vial IM Q15MIN PRN BG <70, and no IV access Heparin Sodium (Porcine) 5,000 unit 07/04/25 21:00 07/07/25 08:31 Heparin Sod Inj 5000 Unit/Ml Vial SC 07/18/25 20:59 5,000 unit Q12HR [place] Administration Ceftriaxone Sodium/Dextrose 1 gm in 50 mls @ 100 mls/hr 07/04/25 17:00 07/06/25 20:37 Rocephin/D5w 1gm Iv Premix IV 07/11/25 16:59 100 mls/hr QPM [place] Administration Insulin Human Lispro 0 unit 07/05/25 17:00 07/07/25 07:21 Insulin Lispro (Admelog) 1 Unit/0.01 Ml Unit SC 08/04/25 16:59 Not Given ACHS [place] Protocol Ondansetron HCl 4 mg 07/04/25 16:29 Ondansetron Inj 2 Mg/Ml Inj 2 Ml IVP 08/03/25 16:28 Q6H PRN NAUSEA OR VOMITING Protocol Oxycodone/Acetaminophen 1 tab 07/04/25 16:29 Oxycodone/Apap 5/325 Tablet PO 07/09/25 16:28 Q6H PRN Pain Scale 6-10 Pantoprazole Sodium 40 mg 07/05/25 09:00 07/07/25 09:10 Pantoprazole 40 Mg Tablet PO 08/04/25 08:59 Not Given QDAY [place] Quetiapine Fumarate 25 mg 07/06/25 21:00 07/06/25 20:36 Quetiapine Fumarate 25 Mg Tablet PO 08/05/25 20:59 25 mg HS [place] Administration Sennosides 1 tab 07/05/25 09:00 07/07/25 09:10 Senna Tablet PO 08/04/25 08:59 Not Given QDAY [place] Protocol
[2025-07-07] MEDS: LACTULOSE SYRUP 20 GM/30 ML UDC PO (11:25)
[2025-07-07 12:00] VITALS: BP 119/77; PULSE 71; PULSE 81; RESP 18; TEMP 36.7; O2SAT 95
--- NOTE | 2025-07-07 13:12 | ESDS_ITS ---
<Statement entered by Suzan Negron DO - 07/07/25 17:52> I, Suzan Negron DO, attest that I was physically present for the herbert portions of the service and evaluated the patient with the resident and I reviewed and discussed the case with the resident and agree with the resident's findings and plans of care as documented above <Statement entered by Georges Alfred MD - 07/07/25 17:42> In summary: 82-year-old male with PMHx of T2DM presenting after an episode of choking during dinner, and brief loss of consciousness and dysphagia as noted by his . There there was also right eye droop noted on exam in the ED which have since resolved. We attempted to reach out to the son who is a personal contract but were unsuccessful. Teleneuro recommended admission for stroke and seizure workup. He has a history of GI bleed, and symptoms appear to have resolved since admission, thus TPN is contraindicated and was not offered. 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 CT is also negative. Will admit for MRI and complete stroke workup and seizure workup. Pending further recommendation from in-house neurology. EEG suggested dementia but not seizure. His symptoms have resolved at the time of discharge. We had recommended SNF placement for rehab and he does not qualify for home health. Family insisted on taking patient home who will care for him at home. I?ve reviewed the note and agree with this assessment and plan, with the exceptions outlined above. I personally went over the labs, imaging, home medications, and prior records, and examined the patient. The case was also reviewed with the attending physician. Please note: this document was transcribed using voice recognition technology; minor inaccuracies may be present. Georges Alfred DO PGY II Planned Discharge Date 07/07/25 DS: Providers Provider Date of admission: 07/04/25 16:33 Primary care physician: Kit Khan MD Admitting Provider: Quan Valentin MD Attending Provider on Admission: Quan Valentin MD Consults: 07/04/25 14:44 Consult to Neurology / Tele-Neurology Routine Comment: Consulting Provider: [facility] 07/04/25 16:29 Consult to Neurology / Tele-Neurology Routine Comment: Consulting Provider: Tristan Gregorio PT [Referral Physical Therapy] Routine Comment: Physician Instructions: Referral Speech Therapy Routine Comment: Attending Provider on DC: Suzan Negron DO Discharging Provider: Priti Starks DO Anticipated date of discharge: 07/07/25 DS: Diagnosis Problem List Completed Was Problem List Reviewed/Reconciled?: Yes Hospital Course Hospital Course Hospital course: 84-year-old male with a medical history of hyperlipidemia, prior stroke or left temporal insult, previous GI bleeds, and non-insulin dependent diabetes, who presented after an episode of choking during lunch, which led to aphasia, and transient right eyelid weakness. He was admitted for a stroke versus seizure workup. Upon initial evaluation, a CT head showed old infarcts, but no acute pathology, and the patient?s NIHSS was 2. Teleneuro consultation recommended against thrombolysis due to the patient?s history of GI bleeding and the absence of deficits on examination. MRI and MRA were conducted, which revealed no new acute infarcts but did show evidence of chronic multi-infarct dementia pattern. The patient?s swallowing function was evaluated by speech therapy, and he was started on a dysphagia diet. Ceftriaxone was initiated due to aspiration pneumonia risks after the choking episode. The patient demonstrated restlessness and agitation, which was managed with antipsychotic medications, and he was placed on medical restraints for safety which were later removed. Patient is medically and physically stable for discharge. Diagnosis: #Right eyelid weakness #Acute encephalopathy #CVA ruled out #Aspiration pneumonia #Leukocytosis #Restlessness and Agitation #Dysphagia #Non-insulin dependent diabetes mellitus #History of GI bleed Discharge Plan: - Take antibiotics as listed below for 5 more days. - Follow up with neurology within 1-2 weeks of discharge. - Follow up with your primary care physician within 1 week of discharge. If you do not have a primary care physician, please follow up with the [facility] Res[facility] clinic ([phone]) ? If you experience any new, worsening or persistent symptoms either call your primary doctor, or dial 911 or present to the emergency department. --- Case discussed with my senior resident Dr. Alfred. Case discussed with my attending Dr. Negron. Priti Starks DO PGY-1 Time Spent with Patient Time attestation: Total time spent providing and/or coordinating discharge services: Time spent: Greater than 30 minutes Exam Vital Signs Temp Pulse Resp BP Pulse Ox O2 Del Method 98.0 F 81 18 119/77 95 Room Air 12/19/25 12:00 07/07/25 12:00 07/07/25 12:00 07/07/25 12:00 07/07/25 12:00 07/07/25 12:00 Narrative Exam Physical Exam General: Awake and in no acute distress. Non-toxic appearing. HEENT: Normocephalic, atraumatic, extraocular movements intact, pupils equal and reactive to light. Heart: Regular rate and rhythm, no murmurs, rubs or gallops. Lungs: Clear to auscultation with no wheezing or crackles bilaterally. Non- labored respirations, symmetric chest rise, no use of accessory muscles. Abdomen: Soft, nondistended, nontender. No guarding or rebound tenderness. Neurologic: No obvious gross neurological deficit, and patient able to move all 4 extremities. Extremities: No edema, clubbing or cyanosis. Bilateral wrist restraints. Skin: Warm and dry without rashes. Psychiatric: Cooperative, appropriate mood and affect Discharge Plan Plan Patient Disposition: HOME (Self Care) Patient condition on transfer: Stable and Benefits outweigh risks Care Plan Goals: - Take antibiotics as listed below for 5 more days. - Follow up with neurology within 1-2 weeks of discharge. - Follow up with your primary care physician within 1 week of discharge. If you do not have a primary care physician, please follow up with the [facility] clinic ([phone]) ? If you experience any new, worsening or persistent symptoms either call your primary doctor, or dial 911 or present to the emergency department. Prescriptions/Referrals Prescriptions/Med Rec: New amoxicillin-pot clavulanate 500-125 mg tablet 1 tab PO BID 5 Days Qty: 10 0RF Rx Instructions: to complete 7 days total Continued atorvastatin [Lipitor] 20 mg tablet 20 mg PO QDAY losartan 25 mg tablet 25 mg PO QDAY metformin 500 mg tablet 500 mg PO BID acetaminophen [Tylenol] 325 mg tablet 650 mg PO Q6H Referrals: Kti Khan MD [Primary Care Provider, Internal Medicine] Patient/Caregiver Discharge Instructions Other Discharge Activity Instructions:: Take antibiotics as listed below for 5 more days. - Follow up with neurology within 1-2 weeks of discharge. - Follow up with your primary care physician within 1 week of discharge. If you do not have a primary care physician, please follow up with the [facility] Res[facility] clinic ([phone]) ? If you experience any new, worsening or persistent symptoms either call your primary doctor, or dial 911 or present to the emergency department. Print Language: Other Stand Alone Forms: Meeta Award Info., Patient Portal Info Letter Discharge Order Discharge Orders: Discharge (Routine); Ordered 07/07/25 Ordered By: Georges Alfred Quality Discharge Quality Measures VTE prophylaxis
--- NOTE | 2025-07-07 14:33 | PC.NURSE ---
Informed by pharmacy after patient discharge that patient's home medications were located on Tele and had not been sent to pharmacy. Medications were retrieved from pharmacy and given to patient's son.
--- NOTE | 2025-07-07 15:11 | PC.CC ---
HH ref sent out, waiting for responses
--- NOTE | 2025-07-09 08:27 | PC.CM ---
Patient accepted by [facility] and start of care date set for 07/10.
== END 2025-07-07 13:35 | disposition home health service (06) | DRG 177 ==
LOC: SERX 15:57 → SERHOLD 16:52 → S2NX 20:12 → S3NX 07-07 06:22
PROVIDERS: Admitting Provider Internal Medicine; Emergency Provider Emergency Medicine; PCP Internal Medicine; Visit Provider Internal Medicine
DX: J69.0 Pneumonitis due to inhalation of food and vomit (principal); I63.9 Cerebral infarction, unspecified; G93.40 Encephalopathy, unspecified; R47.01 Aphasia; R53.1 Weakness; H02.401 Unspecified ptosis of right eyelid; G93.89 Other specified disorders of brain; R13.10 Dysphagia, unspecified; I69.318 Other symptoms and signs involving cognitive functions following cerebral infarction; R45.1 Restlessness and agitation; E78.5 Hyperlipidemia, unspecified; F17.200 Nicotine dependence, unspecified, uncomplicated; E11.9 Type 2 diabetes mellitus without complications; Z79.84 Long term (current) use of oral hypoglycemic drugs; Z78.1 Physical restraint status
CPT/HCPCS: 36415; 70450; 70496; 70498; 70551; 71045; 80053; 80061; 80307; 80320; 81001; 83036; 83735; 83880; 84100; 84443; 84484; 85025; 85610; 85730; 92526; 92610; 93005; 93306; 95816; 96374; 97162; 99284; A4649; J0696; J1200; J1644; J2060; J3475; J7120; Q9967; A9270; G0480